=== PATIENT | female | born 1930 | race Caucasian/White ===

== ENCOUNTER 2017-06-27 23:42 | Inpatient (IN) | payer BC, MEDICARE ==
[~2017-06-27] VITALS: Ht 157.5 cm; Wt 55.9 kg
[~2017-06-27 23:42] MED LIST: ALBUTEROL0.63 MG/3 INH; BUDESONIDE0.5 MG/2 M NEB; FAMOTIDINE20 MG PO; GUAIFENESIN DM118 ML NG; LEVAQUIN750 MG PO; LEVOTHYROXINE50 MCG PO; LORATADINE10 MG PO; MEGESTROL ACETA40 MG PO; MIRTAZAPINE15 MG PO; MULTI-VITAMIN1 EACH PO; NADOLOL20 MG PO; PREDNISONE10 MG PO; SIMVASTATIN20 MG PO; TESSALON PERLE100 MG PO
[2017-06-28] MEDS ORDERED: AZITHROMYCIN250 MG PO (00:06)
--- NOTE | 2017-06-28 00:48 | Diagnostic Imaging Report ---
HIP RIGHT 2-3 VW (+/- PELVIS) Comparison: None Clinical history: Fall, bilateral hip pain Findings: Moderate bilateral hip degenerative changes. Mildly displaced right intertrochanteric femur fracture. Vascular calcifications. Impression: Mildly displaced right intertrochanteric femur fracture. Signed by: Dr Amarilis Jones MD on 06/28/2017 12:45 AM
--- NOTE | 2017-06-28 00:50 | Diagnostic Imaging Report ---
CHEST SINGLE (NOT PORTABLE), 06/27/2017 11:59 PM Technique: CHEST SINGLE (NOT PORTABLE) Comparison: 06/21/2017 Clinical history: Fall with bilateral hip pain, hip fracture Findings: Stable cardiomediastinal silhouette. Atherosclerotic calcifications. There is no consolidation or edema. No pleural effusion or pneumothorax. No acute bony abnormality seen. Impression: 1. Lines/Tubes: None 2. No acute abnormality. Signed by: Dr Amarilis Jones MD on 06/28/2017 12:46 AM
[2017-06-28 00:59] LABS: BASOPHILS # (AUTO) 0.1 (0.0-0.1); BASOPHILS % 0.4 % (0.0-1.0); EOSINOPHILS # (AUTO) 0.2 (0.0-0.4); EOSINOPHILS % 1.4 % (0.0-6.0); HEMATOCRIT 40.7 % (34.2-44.1); HEMOGLOBIN 13.7 g/dL (12.0-16.0); LYMPHOCYTES # (AUTO) 2.5 (1.0-3.2); LYMPHOCYTES % 17.8 % (18.0-39.1); MEAN CORPUSCULAR HEMOGLOBIN 30.8 pg (28-32); MEAN CORPUSCULAR HGB CONC 33.7 g/dL (31-35); MEAN CORPUSCULAR VOLUME 91.5 fL (81-99); MONOCYTES # (AUTO) 1.9 (0.2-0.8); MONOCYTES % 13.4 % (4.4-11.3); NEUTROPHILS # (AUTO) 8.8 (2.1-6.9); NEUTROPHILS % 62.8 % (38.7-80.0); PLATELET COUNT 258 x10e3/uL (140-360); RED BLOOD COUNT 4.45 x10e6/uL (3.6-5.1); RED CELL DISTRIBUTION WIDTH 14.6 % (11.7-14.4)
[2017-06-28 01:02] LABS: INR 0.95; PROTHROMBIN TIME 13.1 seconds (11.9-14.5)
[2017-06-28 01:03] LABS: PARTIAL THROMBOPLASTIN TIME 31.6 seconds (23.8-35.5)
[2017-06-28 01:11] LABS: ALANINE AMINOTRANSFERASE 17 IU/L (0-55); ALBUMIN 3.2 g/dL (3.5-5.0); ALBUMIN/GLOBULIN RATIO 1.1 (0.8-2.0); ALKALINE PHOSPHATASE 52 IU/L (40-150); ANION GAP 14.4 mmol/L (8-16); BLOOD UREA NITROGEN 20 mg/dL (7-26); BUN/CREATININE RATIO 23 (6-25); CALCIUM 9.2 mg/dL (8.4-10.2); CARBON DIOXIDE 24 mmol/L (22-29); CHLORIDE 105 mmol/L (98-107); CREATININE, SERUM 0.88 mg/dL (0.57-1.11); EST GLOMERULAR FILTRATION RATE > 60 ML/MIN (60-); GLUCOSE 131 mg/dL (74-118); POTASSIUM 4.4 mmol/L (3.5-5.1); SODIUM 139 mmol/L (136-145)
[2017-06-28] MEDS ORDERED: SOD CHL IV SCH (02:00)
[2017-06-28] MEDS ORDERED: DEXTROSE IV SCH (02:00)
[2017-06-28] MEDS ORDERED: POTASSIUM CHL IV SCH (02:00)
[2017-06-28] MEDS ORDERED: MORPHINE SULFATE 2 MG/ML SYR IV PRN (02:00)
[2017-06-28] MEDS ORDERED: ONDANSETRON HCL INJ 2 MG/ML VIAL IV PRN (02:00)
[2017-06-28 02:47] LABS: BILIRUBIN,URINE NEGATIVE (NEGATIVE); CLARITY,URINE CLEAR (CLEAR); COLOR,URINE YELLOW (YELLOW); KETONES,URINE NEGATIVE (NEGATIVE); LEUKOCYTE ESTERASE ,URINE NEGATIVE (NEGATIVE); NITRITE,URINE NEGATIVE (NEGATIVE); PROTEIN,URINE DIPSTICK NEGATIVE (NEGATIVE); URINE UROBILINOGEN 0.2 mg/dL (0.2 - 1)
[2017-06-28 02:58] LABS: BACTERIA,URINE RARE /HPF; EPITHELIAL CELLS,URINE RARE /LPF; RBC,URINE 0-5 /HPF (0-5); WBC,URINE (MAN) 0-5 /HPF (0-5)
[2017-06-28 02:59] LABS: MUCUS,URINE MODERATE (RARE)
[2017-06-28 03:00] VITALS: BP 139/65
[2017-06-28 03:07] VITALS: BP 139/65
[2017-06-28 04:00] VITALS: BP 140/64
[2017-06-28 04:07] LABS: BAND NEUTROPHILS % (MANUAL) 4 %; LYMPHOCYTES % (MANUAL) 22 % (19-48); METAMYELOCYTES % (MANUAL) 7 % (0-0); MONOCYTES % (MANUAL) 4 % (3.4-9.0); NEUTROPHILS % (MANUAL) 59 % (40-74); SMUDGE CELLS FEW
[2017-06-28] MEDS: D5.45%NS/KCL 20MEQ 1,000 ML IV SCH (06:45)
[2017-06-28 08:49] VITALS: BP 136/65
[2017-06-28] MEDS ORDERED: CEFAZOLIN SOD 2 GM in WATER STERILE 10ML VIAL 10 ML IV ONE ×2 (09:15→10:30)
[2017-06-28] MEDS ORDERED: SODIUM CHLORIDE 0.9% 250ML 250 ML IV ONE (09:15)
[2017-06-28] MEDS ORDERED: KETOROLAC TROMETHAMINE 30 MG/ML VIAL ONE (13:30)
[2017-06-28] MEDS ORDERED: ONDANSETRON HCL INJ 2 MG/ML VIAL ONE (13:30)
[2017-06-28] MEDS ORDERED: DEXAMETHASONE SOD PHOS INJ 4 MG/ML VIAL ONE (13:30)
[2017-06-28] MEDS ORDERED: PROPOFOL IV EMULSION 10 MG/ML 20 ML VIAL ONE (13:30)
[2017-06-28] MEDS ORDERED: ROCURONIUM BROMIDE 10 MG/ML 5ML VIAL ONE (13:30)
[2017-06-28] MEDS ORDERED: SEVOFLURANE INHAL SOLN 250 ML PEN BTL ONE (13:30)
[2017-06-28] MEDS ORDERED: LIDOCAINE HCL 2% LOCAL INJ 5 ML SDV VIAL INJ ONE (13:30)
[2017-06-28] MEDS ORDERED: FENTANYL CITRATE/PF 100MCG/2 ML INJ ONE (13:34)
[2017-06-28] MEDS ORDERED: HYDROCODONE/APAP 5MG-325MG TAB PO PRN (13:45)
[2017-06-28] MEDS ORDERED: CEFAZOLIN SOD 1 GM/NS 50ML 50 ML IV SCH (14:00)
--- NOTE | 2017-06-28 14:39 | History and Physical ---
CHIEF COMPLAINT: Fall with right hip pain. HISTORY OF PRESENT ILLNESS: This is an 86-year-old woman, a clinic patient, who was attempting to change her clothes at home when she placed both legs into the same pants hole. When she attempted to stand, she fell, resulting in right hip pain. Here she is found to have right hip fracture. She is admitted for further evaluation and management. PAST MEDICAL HISTORY: Bronchopneumonia, hyperglycemia with hemoglobin A1c 5.1, hyperbilirubinemia, hypothyroidism, physical deconditioning, anorexia, hypertension, depression, fall with rib fracture in August 2016. PAST SURGICAL HISTORY: Partial bowel resection in remote history. ALLERGIES: PER THE ELECTRONIC MEDICAL RECORDS. FAMILY HISTORY: None. SOCIAL HISTORY: Patient is . She has no children. Lives with her family, her sister and niece. No alcohol, illicit drugs or cigarettes. MEDICATIONS: Per the electronic medical records. Reviewed. REVIEW OF SYSTEMS: Denies any dizziness, chest pain. VITAL SIGNS: Reviewed. PHYSICAL EXAMINATION GENERAL APPEARANCE: A tired-appearing woman resting in bed. HEENT: Anicteric. CARDIOVASCULAR: Normal S1/S2. LUNGS: Bilateral breath sounds. ABDOMEN: Soft, nontender, nondistended. EXTREMITIES: She has right leg in traction. SKIN: Dry. PSYCHIATRIC: Normal affect. NEUROLOGICALLY: Alert and appropriately. LABS: Reviewed. ASSESSMENT AND PLAN: An 86-year-old woman. 1. Fall with right hip fracture. Surgery consulted. 2. Hyperglycemia. Hemoglobin A1c earlier this day was 5.1. She did not have diabetes. She also had hyperglycemia at that time. 3. Mild hyperbilirubinemia. This is likely Gilbert syndrome as she has had this mild hyperbilirubinemia in the past with negative findings on testing. 4. Physical deconditioning. Physical therapy. 5. Prophylaxis. Will use Pepcid and use Xarelto. 6. Disposition: (1) Patient has good functional status of more than 4 METs. (2) Surgical risk is intermediate. (3) Patient has no coronary artery disease, chronic kidney disease, diabetes or stroke ever. Patient may proceed to surgery without any further testing. She can be covered empirically with preoperative antibiotics in the setting of leukocytosis. This leukocytosis is likely secondary to marginalization of the white blood cells. The urinalysis was negative. Job#: [id number] EV
--- NOTE | 2017-06-28 15:14 | Diagnostic Imaging Report ---
PROCEDURE:HIP RIGHT 2-3 VW (+/- PELVIS) TECHNIQUE: INDICATION: COMPARISON:Patients [facility], , HIP RIGHT 2-3 VW (+/- PELVIS), 06/27/2017, 23:59. FINDINGS:Intramedullary rupal with a femoral neck screw affixes an intertrochanteric fracture. Position appears anatomic. CONCLUSION:Status post IM rupal and femoral neck screw placement. Hi Llanos D.O. Dictated by: Hi Llanos D.O. on 06/28/2017 at 15:22 Electronically approved by: Hi Llanos D.O. on 06/28/2017 at 15:22
--- NOTE | 2017-06-28 15:17 | Operative Report ---
DATE OF PROCEDURE: June 28, 2017 PREOPERATIVE DIAGNOSIS: Displaced right intertrochanteric hip fracture. POSTOPERATIVE DIAGNOSIS: Displaced right intertrochanteric hip fracture. OPERATION/PROCEDURE PERFORMED: Closed reduction of the right intertrochanteric hip fracture, Right short gamma nail fixation of the intertrochanteric hip fracture. DATA ENTRY SUPERVISOR: Gilda Jackman ANESTHESIA: General endotracheal intubation anesthesia. IV FLUIDS: Per the anesthesia record. BRIEF DESCRIPTION OF OPERATIVE PROCEDURE: Ms. Schaefer was taken to the operating room and placed in the supine position on the operating table. Following induction of general anesthesia, as well as endotracheal intubation, the patient's left lower was placed in a well-padded lithotomy position, and the right lower extremity was placed in well-padded longitudinal traction. Fluoroscopic evaluation of the hip joint demonstrated a displaced right intertrochanteric hip fracture. The leg was manipulated under anesthesia, and this resulted in acceptable realignment of her injury. The patient's thigh and flank were then prepped and draped in a standard surgical fashion. An incision was created roughly at the level of the greater trochanter. This incision was carried through the skin only. Blunt dissection was used to deepen the incision to the level of the tip of the trochanter. An awl was placed on the tip of the trochanter, and then advanced within the femur. The position of the awl was checked flouroscopically and to be appropriate. A guidewire was then inserted within the femoral canal, and position of the guidewire was again checked in both AP and lateral planes. The 1-step reamer was then used to create a channel for the implant. A short gamma nail was then inserted without difficulty. A 2nd incision was created somewhat more distally along the lateral aspect of the leg. The guide for the compression screw was then advanced against the lateral aspect of the femur. A guide pin was advanced from lateral to medial through the neck into the head of the femur. The position of the guide pin was checked using fluoroscopy and found to be appropriate. Measurements were taken and a reamer was used to create a channel for the implant. A compression screw was then inserted across the patient's fracture site and compression was placed across the fracture. The compression screw was then locked to prevent further rotation, but to allow further compression. The nail was then locked distally using a guide from the system. All wounds were then copiously irrigated. The wounds were closed in a multilayer fashion. Sterile dressings were applied. The patient was awakened and taken to the postanesthesia care unit in stable condition. Job#: [id number] ADAM ZHOU
[2017-06-28] MEDS: CEFAZOLIN SOD 1 GM VIAL IV SCH (17:50)
[2017-06-28 20:14] VITALS: BP 144/60
[2017-06-29] VITALS (8 sets, daily range): BP systolic 124–164; BP diastolic 59–70
[2017-06-29] MEDS: MORPHINE SULFATE 5 MG/ML VIAL IV PRN ×2 (00:05→21:24)
[2017-06-29] MEDS: CEFAZOLIN SOD 1 GM VIAL IV SCH ×2 (01:58→10:06)
[2017-06-29] MEDS: D5.45%NS/KCL 20MEQ 1,000 ML IV SCH ×3 (01:59→22:45)
[2017-06-29 07:11] LABS: BASOPHILS # (AUTO) 0.1 (0.0-0.1); BASOPHILS % 0.3 % (0.0-1.0); HEMOGLOBIN 10.8 g/dL (12.0-16.0); LYMPHOCYTES # (AUTO) 1.3 (1.0-3.2); LYMPHOCYTES % 6.8 % (18.0-39.1); MEAN CORPUSCULAR HGB CONC 33.8 g/dL (31-35); MONOCYTES # (AUTO) 2.1 (0.2-0.8); NEUTROPHILS # (AUTO) 15.1 (2.1-6.9); NEUTROPHILS % 79.8 % (38.7-80.0); PLATELET COUNT 224 x10e3/uL (140-360); RED BLOOD COUNT 3.48 x10e6/uL (3.6-5.1); RED CELL DISTRIBUTION WIDTH 14.5 % (11.7-14.4)
[2017-06-29 07:35] LABS: BLOOD UREA NITROGEN 14 mg/dL (7-26); BUN/CREATININE RATIO 20 (6-25); CALCIUM 8.2 mg/dL (8.4-10.2); CARBON DIOXIDE 24 mmol/L (22-29); CHLORIDE 108 mmol/L (98-107); CREATININE, SERUM 0.71 mg/dL (0.57-1.11); EST GLOMERULAR FILTRATION RATE > 60 ML/MIN (60-); GLUCOSE 172 mg/dL (74-118); SODIUM 139 mmol/L (136-145)
[2017-06-29] MEDS: RIVAROXABAN 10 MG TABLET PO SCH (17:02)
[2017-06-30 02:13] VITALS: BP 145/65
[2017-06-30] MEDS: MORPHINE SULFATE 5 MG/ML VIAL IV PRN (03:05)
[2017-06-30 05:53] VITALS: BP 134/73
[2017-06-30 07:01] LABS: HEMATOCRIT 31.6 % (34.2-44.1); HEMOGLOBIN 10.5 g/dL (12.0-16.0)
[2017-06-30] MEDS ORDERED: LEVOFLOXACIN 500MG/D5W 100ML 100 ML IV SCH (07:15)
[2017-06-30 07:31] LABS: BASOPHILS # (AUTO) 0.1 (0.0-0.1); BASOPHILS % 0.5 % (0.0-1.0); EOSINOPHILS # (AUTO) 0.2 (0.0-0.4); EOSINOPHILS % 0.7 % (0.0-6.0); LYMPHOCYTES # (AUTO) 4.8 (1.0-3.2); LYMPHOCYTES % 22.5 % (18.0-39.1); MEAN CORPUSCULAR HEMOGLOBIN 30.3 pg (28-32); MEAN CORPUSCULAR HGB CONC 33.1 g/dL (31-35); MEAN CORPUSCULAR VOLUME 91.4 fL (81-99); MONOCYTES # (AUTO) 2.8 (0.2-0.8); MONOCYTES % 13.1 % (4.4-11.3); NEUTROPHILS # (AUTO) 13.1 (2.1-6.9); NEUTROPHILS % 61.8 % (38.7-80.0); PLATELET COUNT 252 x10e3/uL (140-360); RED BLOOD COUNT 3.47 x10e6/uL (3.6-5.1); RED CELL DISTRIBUTION WIDTH 14.3 % (11.7-14.4)
[2017-06-30 07:40] LABS: ANION GAP 10.4 mmol/L (8-16); BLOOD UREA NITROGEN 13 mg/dL (7-26); BUN/CREATININE RATIO 18 (6-25); CALCIUM 8.4 mg/dL (8.4-10.2); CARBON DIOXIDE 25 mmol/L (22-29); CHLORIDE 106 mmol/L (98-107); CREATININE, SERUM 0.71 mg/dL (0.57-1.11); EST GLOMERULAR FILTRATION RATE > 60 ML/MIN (60-); GLUCOSE 113 mg/dL (74-118); POTASSIUM 4.4 mmol/L (3.5-5.1); SODIUM 137 mmol/L (136-145)
--- NOTE | 2017-06-30 07:48 | Progress Note ---
DATE: June 29, 2017 TIME: 7 a.m. OVERNIGHT: Status post surgical management. REVIEW OF SYSTEMS: Denies any dizziness or chest pain. PHYSICAL EXAMINATION VITAL SIGNS: Reviewed. GENERAL: A tired-appearing woman resting in bed. HEENT: Anicteric. CARDIOVASCULAR: Normal S1 and S2. LUNGS: Moderate breath sounds. ABDOMEN: Soft and nontender. EXTREMITIES: Right hip with dressing in place. SKIN: Dry. PSYCHIATRIC: Flat affect. NEUROLOGICAL: Alert. LABS: Reviewed. MEDICATIONS: Reviewed. ASSESSMENT AND PLAN: An 86-year-old woman with: 1. Fall with right hip fracture. 2. Hyperglycemia: Hemoglobin A1c is 5.1. 3. Mild hyperbilirubinemia. 4. Physical deconditioning. 5. Right hip pain. 6. Prophylaxis: Pepcid and Xarelto. 7. Disposition: Continue current care and physical therapy. SNF evaluation as family is interested. Job#: [id number] CT
--- NOTE | 2017-06-30 07:54 | Progress Note ---
DATE: June 30, 2017 TIME: 7:10 a.m. OVERNIGHT: Patient confused. REVIEW OF SYSTEMS: Unreliable. PHYSICAL EXAMINATION VITAL SIGNS: Reviewed. GENERAL: A tired-appearing woman resting in bed. HEENT: Anicteric. CARDIOVASCULAR: Normal S1 and S2. LUNGS: Moderate breath sounds. ABDOMEN: Soft, nontender and nondistended. EXTREMITIES: Right hip with dressing in place clean and dry. SKIN: Dry. PSYCHIATRIC: Flat affect. LABS: Reviewed. MEDICATIONS: Reviewed. ASSESSMENT AND PLAN: This is an 86-year-old woman with: 1. Fall/right hip fracture: Status post surgical repair. Continue physical therapy. Family is not interested in SNF. 2. Right hip pain: P.r.n. pain medications. 3. Worsening leukocytosis: Will obtain labs this morning. Will obtain a repeat urinalysis and chest x-ray. Use empiric antibiotics. 4. Normocytic anemia: Will follow. 5. Acute psychosis/acute delirium: Following surgery. Will discontinue narcotics and use only Tylenol p.r.n. May need to use tramadol if needed. 6. Moderate hyperbilirubinemia. 7. Physical deconditioning: Physical therapy. 8. Prophylaxis: Continue Xarelto. Will add Pepcid. 9. Disposition: Monitor closely. Obtain labs this morning. Job#: [id number] ADAM
--- NOTE | 2017-06-30 07:55 | Diagnostic Imaging Report ---
PROCEDURE:CHEST SINGLE (PORTABLE) TECHNIQUE:Portable AP chest INDICATION:Status post intramedullary rupal right hip. COMPARISON:None. FINDINGS: Trace left lower lobe airspace opacity with adjacent pleural effusion and minimal left hemidiaphragm elevation. Right lung is clear. Upper limits of normal heart size for technique, with prominent central vascular peribronchial cuffing. Intact skeleton. CONCLUSION: Mild central vascular congestion without pulmonary edema. Left lower lobe subsegmental atelectasis (less likely aspiration or developing pneumonia). Dictated by: Alvin Ocampo M.D. on 06/30/2017 at 8:02 Electronically approved by: Alvin Ocampo M.D. on 06/30/2017 at 8:02
[2017-06-30] MEDS: FAMOTIDINE 20 MG TAB PO SCH ×2 (07:59→17:28)
[2017-06-30] MEDS: ACETAMINOPHEN 325 MG TAB PO PRN ×2 (07:59→17:28)
[2017-06-30 08:03] VITALS: BP 142/64
[2017-06-30 11:56] VITALS: BP 116/59
[2017-06-30] MEDS: D5.45%NS/KCL 20MEQ 1,000 ML IV SCH (12:05)
[2017-06-30 15:43] VITALS: BP 151/65
[2017-06-30] MEDS: RIVAROXABAN 10 MG TABLET PO SCH (17:28)
[2017-06-30 18:45] LABS: BILIRUBIN,URINE NEGATIVE (NEGATIVE); KETONES,URINE NEGATIVE (NEGATIVE); LEUKOCYTE ESTERASE ,URINE NEGATIVE (NEGATIVE); NITRITE,URINE NEGATIVE (NEGATIVE); PROTEIN,URINE DIPSTICK NEGATIVE (NEGATIVE); URINE UROBILINOGEN 0.2 mg/dL (0.2 - 1)
[2017-06-30] MEDS: LEVOFLOXACIN 500MG/D5W 100ML 100 ML IV SCH (18:45)
[2017-06-30 18:47] LABS: CLARITY,URINE SL CLOUDY (CLEAR); COLOR,URINE YELLOW (YELLOW)
[2017-06-30 18:58] LABS: EPITHELIAL CELLS,URINE RARE /LPF
[2017-06-30 20:00] VITALS: BP 133/68
[2017-06-30] MEDS: ONDANSETRON HCL INJ 2 MG/ML VIAL IV PRN (21:21)
[2017-07-01] VITALS: BP 143/67
[2017-07-01] MEDS: D5.45%NS/KCL 20MEQ 1,000 ML IV SCH (00:46)
[2017-07-01 04:00] VITALS: BP 158/77
[2017-07-01] MEDS: ONDANSETRON HCL INJ 2 MG/ML VIAL IV PRN ×2 (04:18→10:25)
[2017-07-01 06:56] LABS: BASOPHILS # (AUTO) 0.1 (0.0-0.1); BASOPHILS % 0.3 % (0.0-1.0); EOSINOPHILS % 0.1 % (0.0-6.0); HEMATOCRIT 32.9 % (34.2-44.1); LYMPHOCYTES # (AUTO) 1.8 (1.0-3.2); LYMPHOCYTES % 7.8 % (18.0-39.1); MEAN CORPUSCULAR HEMOGLOBIN 30.4 pg (28-32); MEAN CORPUSCULAR HGB CONC 33.4 g/dL (31-35); MEAN CORPUSCULAR VOLUME 90.9 fL (81-99); MONOCYTES % 8.5 % (4.4-11.3); NEUTROPHILS # (AUTO) 18.9 (2.1-6.9); NEUTROPHILS % 81.2 % (38.7-80.0); PLATELET COUNT 296 x10e3/uL (140-360); RED BLOOD COUNT 3.62 x10e6/uL (3.6-5.1); RED CELL DISTRIBUTION WIDTH 14.2 % (11.7-14.4)
--- NOTE | 2017-07-01 07:22 | Diagnostic Imaging Report ---
PROCEDURE:ABDOMEN-1VIEW (KUB) TECHNIQUE:Supine AP abdomen INDICATION:Abdominal distention status post right hip surgery. COMPARISON:None. FINDINGS: Diffuse gaseous distention of small bowel, with grossly decompressed large bowel. No evidence of organomegaly or ascites. Extensive arteriosclerosis of the splenic artery. Grossly intact skeleton. Right antegrade femoral rupal with femoral neck screw. CONCLUSION: Diffuse gaseous distention of the small bowel suggesting postoperative ileus. Dictated by: Alvin Ocamop M.D. on 07/01/2017 at 7:30 Electronically approved by: Alvin Ocampo M.D. on 07/01/2017 at 7:30
[2017-07-01] MEDS: FAMOTIDINE 20 MG TAB PO SCH ×2 (07:30→17:19)
[2017-07-01 07:32] LABS: ANION GAP 10.7 mmol/L (8-16); BLOOD UREA NITROGEN 13 mg/dL (7-26); BUN/CREATININE RATIO 19 (6-25); CALCIUM 8.6 mg/dL (8.4-10.2); CARBON DIOXIDE 24 mmol/L (22-29); CHLORIDE 105 mmol/L (98-107); CREATININE, SERUM 0.68 mg/dL (0.57-1.11); EST GLOMERULAR FILTRATION RATE > 60 ML/MIN (60-); GLUCOSE 172 mg/dL (74-118); POTASSIUM 4.7 mmol/L (3.5-5.1); SODIUM 135 mmol/L (136-145)
[2017-07-01] MEDS ORDERED: DEXTROSE 5%/0.9% SOD CHL 1,000 ML IV SCH (07:45)
[2017-07-01 08:02] VITALS: BP 129/78
[2017-07-01 08:34] LABS: BAND NEUTROPHILS % (MANUAL) 1 %; LYMPHOCYTES % (MANUAL) 7 % (19-48); MONOCYTES % (MANUAL) 10 % (3.4-9.0); MYELOCYTES % (MANUAL) 1 % (0-0); NEUTROPHILS % (MANUAL) 80 % (40-74)
[2017-07-01 08:35] LABS: PLATELET ESTIMATE ADEQUATE; PLATELET MORPHOLOGY COMMENT NORMAL; RBC MORPHOLOGY COMMENT NORMAL
[2017-07-01 08:36] LABS: ANISOCYTOSIS SLIGHT
--- NOTE | 2017-07-01 09:32 | Progress Note ---
DATE: July 01, 2017 TIME: 6:20 a.m. OVERNIGHT: She had abdominal discomfort with some vomiting. REVIEW OF SYSTEMS: Denies any pain. PHYSICAL EXAMINATION: VITAL SIGNS: Have been reviewed. GENERAL APPEARANCE: Tired-appearing woman resting in bed. HEENT: Anicteric. Pupils respond to light. No oral lesions. CARDIOVASCULAR: Normal S1 and S2. LUNGS: Moderate breath sounds. ABDOMEN: Soft. Mildly distended, mildly full. EXTREMITIES: No edema. She has right hip dressing in place, clean and dry. SKIN: Dry. PSYCHIATRIC: Flat affect. LABS: Reviewed. MEDICATIONS: Reviewed. ASSESSMENT: An 86-year-old woman: 1. Fall/right hip fracture. 2. Right hip pain. 3. Worsening leukocytosis. 4. Normocytic anemia. 5. Acute psychosis/acute delirium. 6. Moderate hyperbilirubinemia. 7. Physical deconditioning. 8. Abdominal distention. PLAN: 1. Obtain KUB. 2. Obtain labs. 3. Continue physical therapy. Patient had minimal therapy yesterday while sitting on the bed with therapist. 4. Family not interested in SNF, but this may be necessary. Will follow up labs this morning and see how patient does with physical therapy today. 5. Provide incentive spirometry to reduce atelectasis. Job#: [id number]
[2017-07-01] MEDS ORDERED: METOPROLOL TARTRATE 25 MG TAB PO SCH ×3 (10:15→21:00)
[2017-07-01] MEDS: METOPROLOL TARTRATE INJ 1 MG/ML VIAL IV PRN (10:25)
[2017-07-01 12:01] VITALS: BP 133/70
[2017-07-01 16:14] VITALS: BP 177/77
[2017-07-01] MEDS ORDERED: DIGOXIN INJ 0.25 MG/ML 2 ML AMP IV ONE (16:15)
[2017-07-01] MEDS ORDERED: PROMETHAZINE 12.5MG/ NACL 0.9% 12.5 MG/50 ML BAG IV PRN (16:15)
[2017-07-01] MEDS: HYDROMORPHONE 1MG/1ML INJ IV SCH (17:00)
[2017-07-01] MEDS ORDERED: AMIODARONE HCL 200 MG TAB PO SCH (17:00)
[2017-07-01] MEDS: RIVAROXABAN 10 MG TABLET PO SCH (17:19)
[2017-07-01] MEDS: AMIODARONE HCL 200 MG TAB PO SCH (17:19)
[2017-07-01 17:59] LABS: ALANINE AMINOTRANSFERASE 11 IU/L (0-55); ALBUMIN 2.5 g/dL (3.5-5.0); ALBUMIN/GLOBULIN RATIO 0.8 (0.8-2.0); ALKALINE PHOSPHATASE 60 IU/L (40-150); ANION GAP 10.4 mmol/L (8-16); BLOOD UREA NITROGEN 12 mg/dL (7-26); BUN/CREATININE RATIO 17 (6-25); CALCIUM 8.6 mg/dL (8.4-10.2); CARBON DIOXIDE 25 mmol/L (22-29); CHLORIDE 104 mmol/L (98-107); CREATININE, SERUM 0.72 mg/dL (0.57-1.11); EST GLOMERULAR FILTRATION RATE > 60 ML/MIN (60-); GLUCOSE 150 mg/dL (74-118); POTASSIUM 4.4 mmol/L (3.5-5.1); SODIUM 135 mmol/L (136-145)
[2017-07-01] MEDS: LEVOFLOXACIN 500MG/D5W 100ML 100 ML IV SCH (18:13)
[2017-07-01] MEDS ORDERED: SODIUM CHLORIDE 0.9% 1000ML 1,000 ML ONE (19:04)
[2017-07-01] MEDS ORDERED: SODIUM CHLORIDE 0.9% 1000ML 1,000 ML IV ONE (19:15)
[2017-07-01 19:18] LABS: MAGNESIUM 1.8 MG/DL (1.3-2.1); PHOSPHORUS 1.8 MG/DL (2.3-4.7)
[2017-07-01] MEDS: DEXTROSE 5%/0.45% SOD CHL 1,000 ML IV SCH (19:58)
[2017-07-01 20:00] VITALS: BP 141/76
[2017-07-01] MEDS ORDERED: POTASSIUM PHOSPHATE 10 MM in SODIUM CHLORIDE 0.9% 250ML 250 ML IV ONE (21:00)
[2017-07-01] MEDS ORDERED: DIGOXIN INJ 0.25 MG/ML 2 ML AMP IV NR (22:00)
[2017-07-02] VITALS (7 sets, daily range): BP systolic 135–174; BP diastolic 63–89
[2017-07-02] MEDS: METOPROLOL TARTRATE INJ 1 MG/ML VIAL IV PRN (00:15)
[2017-07-02] MEDS: HYDROMORPHONE 1MG/1ML INJ IV SCH ×3 (01:00→17:00)
[2017-07-02 06:56] LABS: BASOPHILS # (AUTO) 0.1 (0.0-0.1); BASOPHILS % 0.4 % (0.0-1.0); EOSINOPHILS % 0.1 % (0.0-6.0); HEMATOCRIT 29.6 % (34.2-44.1); HEMOGLOBIN 10.1 g/dL (12.0-16.0); LYMPHOCYTES # (AUTO) 1.4 (1.0-3.2); LYMPHOCYTES % 6.1 % (18.0-39.1); MEAN CORPUSCULAR HEMOGLOBIN 30.7 pg (28-32); MEAN CORPUSCULAR HGB CONC 34.1 g/dL (31-35); MONOCYTES # (AUTO) 1.8 (0.2-0.8); NEUTROPHILS # (AUTO) 18.8 (2.1-6.9); NEUTROPHILS % 82.6 % (38.7-80.0); PLATELET COUNT 324 x10e3/uL (140-360); RED BLOOD COUNT 3.29 x10e6/uL (3.6-5.1); RED CELL DISTRIBUTION WIDTH 14.3 % (11.7-14.4)
--- NOTE | 2017-07-02 07:17 | Progress Note ---
DATE: July 02, 2017 TIME: 7 a.m. OVERNIGHT: Patient refusing to ambulate, but less confused. Overnight, she had a rapid heart with atrial fibrillation. REVIEW OF SYSTEMS: Denies any dizziness. PHYSICAL EXAMINATION VITAL SIGNS: Reviewed. GENERAL: A tired-appearing woman resting in bed. HEENT: Anicteric. CARDIOVASCULAR: Normal S1 and S2. Irregular heart rate. LUNGS: Moderate breath sounds. ABDOMEN: Soft, nontender and nondistended. EXTREMITIES: She has a right hip with dressing in place. SKIN: Dry. PSYCHIATRIC: Flat affect. LABS: Reviewed. MEDICATIONS: Reviewed. ASSESSMENT: An 86-year-old woman with: 1. New-onset of atrial fibrillation with rapid ventricular response. 2. Fall/right hip fracture: Status post repair. 3. Right hip pain. 4. Normocytic anemia. 5. Acute psychosis/acute delirium. 6. Moderate hyperbilirubinemia. 7. Physical deconditioning. 8. Abdominal distention/postoperative ileus. PLAN 1. Ambulate the patient. 2. Clear liquid diet. 3. Rate control. Titrate beta sheyla. Continue amiodarone and digoxin. 4. Follow up labs this morning. Leukocytosis worsened yesterday. 5. Replace electrolytes. 6. Follow up repeat LFTs. 7. All cultures remain negative. 8. Continue Xarelto. 9. Ambulate the patient with physical therapy this morning. Job#: [id number] ADAM
[2017-07-02 07:18] LABS: ALANINE AMINOTRANSFERASE 12 IU/L (0-55); ALBUMIN 2.2 g/dL (3.5-5.0); ALBUMIN/GLOBULIN RATIO 0.7 (0.8-2.0); ALKALINE PHOSPHATASE 53 IU/L (40-150); ANION GAP 10.4 mmol/L (8-16); BLOOD UREA NITROGEN 12 mg/dL (7-26); BUN/CREATININE RATIO 19 (6-25); CARBON DIOXIDE 21 mmol/L (22-29); CHLORIDE 107 mmol/L (98-107); CREATININE, SERUM 0.62 mg/dL (0.57-1.11); EST GLOMERULAR FILTRATION RATE > 60 ML/MIN (60-); GLUCOSE 157 mg/dL (74-118); POTASSIUM 4.4 mmol/L (3.5-5.1); SODIUM 134 mmol/L (136-145)
[2017-07-02] MEDS: FAMOTIDINE 20 MG TAB PO SCH ×2 (08:50→18:23)
[2017-07-02] MEDS: AMIODARONE HCL 200 MG TAB PO SCH ×2 (08:50→20:18)
[2017-07-02] MEDS: METOPROLOL TARTRATE 50 MG TAB PO SCH ×2 (08:50→20:19)
[2017-07-02] MEDS ORDERED: METOPROLOL TARTRATE 25 MG TAB PO SCH (09:00)
[2017-07-02 10:41] LABS: BAND NEUTROPHILS % (MANUAL) 1 %; LYMPHOCYTES % (MANUAL) 11 % (19-48); MONOCYTES % (MANUAL) 2 % (3.4-9.0); NEUTROPHILS % (MANUAL) 86 % (40-74)
[2017-07-02 10:42] LABS: ANISOCYTOSIS MODERATE; HYPOCHROMASIA SLIGHT; PLATELET ESTIMATE ADEQUATE; PLATELET MORPHOLOGY COMMENT NORMAL; RBC MORPHOLOGY COMMENT NORMAL
[2017-07-02] MEDS: DEXTROSE 5%/0.45% SOD CHL 1,000 ML IV SCH (12:00)
--- NOTE | 2017-07-02 15:24 | Consultation ---
DATE OF CONSULTATION: July 02, 2017 CARDIOLOGY CONSULTATION REASON FOR CONSULTATION: Atrial fibrillation. HISTORY OF PRESENT ILLNESS: Ms. Scahefer, of note, is demented and confused and is unable to corroborate any history with me. Ms. Schaefer is an 86-year-old lady with a past medical history of hypothyroidism, dementia, physical deconditioning, anorexia, depression, a prior history of fall with a rib fracture in August 2016, who presented to this institution after a fall while attempting to change her clothes. When she attempted to stand, she fell and subsequently suffered a right hip fracture. She underwent a closed reduction with a Gamma nail fixation of the intertrochanteric fracture on June 28, 2017, and clinical course has been complicated by the fact that she has had postoperative ileus and increasing abdominal distention and pain. In terms of her vitals, patient went into atrial fibrillation with rapid ventricular response yesterday and, of note, she has been having increasing white blood cell count and again the ileus. Upon my visit today with the patient, patient seems to be resting comfortably but is very confused and is unable to corroborate any history. She denies any chest pain or shortness of breath. However, she is not very reliable. PAST MEDICAL HISTORY 1. Prior history of fall with fracture. 2. Hypertension. 3. Hypothyroidism. 4. Severe physical deconditioning and anorexia. 5. Prior history of bronchopneumonia. PAST SURGICAL HISTORY: History of partial bowel resection surgery in the remote past. FAMILY HISTORY: Unable to obtained secondary to her mental condition. SOCIAL HISTORY: According to the chart, she is . No children. Does have a niece. No alcohol or illicit drug use. ALLERGIES: NO KNOWN DRUG ALLERGIES. CURRENT MEDICATIONS: Include 1. Metoprolol 150 mg b.i.d. 2. Amiodarone 400 mg b.i.d. 3. Pepcid 20 mg b.i.d. 4. Levaquin q.24 h. 5. Xarelto 10 mg daily. 6. Zofran p.r.n. 7. Dilaudid p.r.n. 8. Benadryl p.r.n. REVIEW OF SYSTEMS: Unable to be obtained secondary to confused mental condition. PHYSICAL EXAMINATION VITAL SIGNS: Height of 62 inches, weight of 123 pounds. BMI is 22.5. Temperature of 97.6, pulse currently is 82, respiratory rate of 22, blood pressure 145/82, O2 sat 98% on 2 liters nasal cannula. IN GENERAL: This is a confused lady who is lying in bed and does not appear to be in distress. HEENT: Normocephalic, atraumatic. Pupils equally round and reactive to light. Extraocular movements are intact. Oropharynx is clear. NECK: No elevation of jugular venous pulsation, no carotid bruits. CARDIOVASCULAR: Irregularly irregular rate and rhythm. Normal S1 and S2. Soft 2/6 systolic ejection murmur at the right upper sternal border. LUNGS: Show decreased bibasilar breath sounds with some trace crackles. ABDOMEN: Distended, protuberant, with very hypoactive bowel sounds, but there is no rebound or guarding. BACK: No costovertebral angle tenderness. EXTREMITIES: Warm. There is noteworthy right thigh, lateral thigh edema. The surgical site is dressed and appears dry and intact. There is no lower extremity swelling. NEUROLOGIC: She is confused. She seems to move all 4 extremities and appears nonfocal. LABS: White count 22.8, hemoglobin 10.1, hematocrit 29.6, platelets of 324. Sodium 134, potassium 4.4, chloride 107, bicarb 21, BUN 12, creatinine 0.62, glucose of 157, calcium 8.0. AST 25, ALT 12, total bilirubin 1.8, total protein 5.2, albumin of 2.2. INR was 0.95. UA shows no white cells. Blood cultures from June 30 show no growth. Urine culture from June 28 shows no growth. Again urine culture on June 30 shows no growth. KUB from July 01, 2017, shows diffuse gaseous distention of the small bowel suggesting postoperative ileus. EKG reviewed, revealing atrial fibrillation with rapid ventricular response and nonspecific ST-T wave changes. DIAGNOSES 1. Atrial fibrillation with rapid ventricular response: This is a postoperative lady who currently exhibits signs of sepsis, very elevated white count in the setting of ileus. In a very elderly lady, this is not entirely surprising. 2. Status post fall with right hip fracture and status post surgical repair and fixation. 3. Hypertension, essential. 4. Dementia with questionable superimposed delirium. 5. Leukocytosis/sepsis: Unclear source. PLAN/RECOMMENDATIONS 1. Patient is on Xarelto for DVT prophylaxis and, since has stable renal function, I am okay with that and this will also help serve protection for thromboembolic prophylaxis. 2. We have started her on amiodarone b.i.d. with the hopes that this will help her resume back to normal sinus rhythm. 3. The patient recently received enema and has had 2 bowel movements according to the nursing staff today, hopefully with the resolution of her abdominal distention and ileus, and this may help decrease any stressors on the body. 4. This patient is receiving currently Levaquin for antibiotic, which has reasonably good coverage and is covering GI and pulmonary sources which may exacerbate the atrial arrhythmias. 5. Will continue telemetry monitoring. 6. Continue beta sheyla therapy with hold parameters. 7. Will continue to follow this patient with you. Thank you for this referral. Job#: [id number] EV
[2017-07-02] MEDS: RIVAROXABAN 10 MG TABLET PO SCH (18:24)
[2017-07-02] MEDS: LEVOFLOXACIN 500MG/D5W 100ML 100 ML IV SCH (18:30)
[2017-07-02] MEDS: SIMETHICONE 80 MG CHEW PO PRN (22:45)
[2017-07-03] VITALS: BP 163/78
[2017-07-03] MEDS: HYDROMORPHONE 1MG/1ML INJ IV SCH (00:55)
[2017-07-03] MEDS: DEXTROSE 5%/0.45% SOD CHL 1,000 ML IV SCH ×2 (00:55→21:32)
[2017-07-03 04:00] VITALS: BP 143/74
[2017-07-03 08:29] VITALS: BP 183/76
[2017-07-03] MEDS: AMIODARONE HCL 200 MG TAB PO SCH ×2 (09:40→21:00)
[2017-07-03] MEDS: METOPROLOL TARTRATE 50 MG TAB PO SCH ×3 (09:40→18:00)
[2017-07-03] MEDS: FAMOTIDINE 20 MG TAB PO SCH ×2 (09:40→16:30)
[2017-07-03 10:07] LABS: BASOPHILS # (AUTO) 0.2 (0.0-0.1); BASOPHILS % 0.5 % (0.0-1.0); EOSINOPHILS % 0.1 % (0.0-6.0); HEMATOCRIT 32.2 % (34.2-44.1); HEMOGLOBIN 11.1 g/dL (12.0-16.0); LYMPHOCYTES # (AUTO) 1.5 (1.0-3.2); LYMPHOCYTES % 4.6 % (18.0-39.1); MEAN CORPUSCULAR HEMOGLOBIN 30.6 pg (28-32); MEAN CORPUSCULAR HGB CONC 34.5 g/dL (31-35); MEAN CORPUSCULAR VOLUME 88.7 fL (81-99); MONOCYTES # (AUTO) 2.5 (0.2-0.8); MONOCYTES % 7.7 % (4.4-11.3); NEUTROPHILS % 84.3 % (38.7-80.0); PLATELET COUNT 425 x10e3/uL (140-360); RED BLOOD COUNT 3.63 x10e6/uL (3.6-5.1); RED CELL DISTRIBUTION WIDTH 14.1 % (11.7-14.4)
--- NOTE | 2017-07-03 10:12 | Diagnostic Imaging Report ---
EXAM: ABDOMEN-1VIEW (KUB) DATE: 07/03/2017 6:55 AM INDICATION: Distention COMPARISON: 07/01/2017 radiograph FINDINGS: Dilated gas-filled loops of bowel are present. Vascular calcifications in the left upper quadrant likely represent splenic artery calcifications. Evaluation for pneumoperitoneum limited given portable technique. Post surgical changes right hip stable. IMPRESSION: Gas-filled dilated loops of bowel, more conspicuous left upper quadrant. CT could be obtained for further evaluation. Signed by: Dr. Solis Sandoval MD on 07/03/2017 10:08 AM
[2017-07-03 10:32] LABS: ALANINE AMINOTRANSFERASE 16 IU/L (0-55); ALBUMIN 2.3 g/dL (3.5-5.0); ALBUMIN/GLOBULIN RATIO 0.8 (0.8-2.0); ALKALINE PHOSPHATASE 51 IU/L (40-150); ANION GAP 11.4 mmol/L (8-16); BLOOD UREA NITROGEN 18 mg/dL (7-26); BUN/CREATININE RATIO 32 (6-25); CALCIUM 8.1 mg/dL (8.4-10.2); CARBON DIOXIDE 22 mmol/L (22-29); CHLORIDE 99 mmol/L (98-107); CREATININE, SERUM 0.56 mg/dL (0.57-1.11); EST GLOMERULAR FILTRATION RATE > 60 ML/MIN (60-); GLUCOSE 142 mg/dL (74-118); POTASSIUM 4.4 mmol/L (3.5-5.1); SODIUM 128 mmol/L (136-145)
[2017-07-03] MEDS: SIMETHICONE 80 MG CHEW PO PRN (10:42)
[2017-07-03 10:43] LABS: LYMPHOCYTES % (MANUAL) 7 % (19-48); MONOCYTES % (MANUAL) 17 % (3.4-9.0); NEUTROPHILS % (MANUAL) 74 % (40-74); PLATELET ESTIMATE ADEQUATE; PLATELET MORPHOLOGY COMMENT NORMAL; RBC MORPHOLOGY COMMENT NORMAL
[2017-07-03] MEDS ORDERED: VANCOMYCIN 250MG/5ML ORAL SOLN PO SCH (12:00)
[2017-07-03] MEDS ORDERED: DIATRIZOATE MEGL/DIATRIZOA SOD 30 ML BTL PO ONE (12:36)
[2017-07-03] MEDS: CEFEPIME HCL 1 GM VIAL IV SCH ×2 (13:00→21:31)
[2017-07-03] MEDS: METRONIDAZOLE 500MG/NS 100ML 100 ML IV SCH ×2 (13:00→17:50)
[2017-07-03] MEDS: ACETAMINOPHEN 325 MG TAB PO SCH ×2 (13:06→21:31)
[2017-07-03 14:15] VITALS: BP 162/77
--- NOTE | 2017-07-03 14:18 | Consultation ---
DATE OF CONSULTATION: July 03, 2017 INFECTIOUS DISEASE CONSULTATION ATTENDING PHYSICIAN: Dr. Dawit Reeves. REASON FOR CONSULTATION: Elevated WBC. Thank you, Dr. Reeves, for asking me to see this patient. HISTORY: The patient is an 86-year-old woman referred for elevated WBC. She was admitted through the emergency department on June 28, 2017, with right hip intertrochanteric fracture after a fall. The patient fell at home while changing her underwear. She was taking an oral antibiotic and prednisone for chest congestion prior. The patient had been evaluated by the orthopedic service and successfully underwent closed reduction of a right hip fracture. However, the patient has developed worsening leukocytosis since surgery (range 18,890 to 33,170). The WBC in the emergency room was 18,850. The patient vomited 2 days ago and complains of progressive abdominal pain and has refused to eat. She has loose bowel movement (usual habit according to the family). There is no fever. PAST MEDICAL HISTORY: Hypertension, hypothyroidism, depression, early Alzheimer's dementia. PAST SURGICAL HISTORY: Rib fracture following a fall and partial bowel resection. ALLERGIES: NO KNOWN DRUG ALLERGIES. MEDICATION: The current antibiotics are Levaquin 500 mg IV piggyback q.24 h. and metronidazole 500 mg IV piggyback q.6 h. IMMUNIZATION: She received influenza vaccine in May 2017. She has not received pneumococcal vaccination. FAMILY HISTORY: Noncontributory. SOCIAL HISTORY: No alcohol or tobacco use. REVIEW OF SYSTEMS: As per history of present illness. PHYSICAL EXAMINATION GENERAL: Acutely ill. VITAL SIGNS: T-max 98, pulse 90, respiratory rate 20, blood pressure 183/76. Weight 123 pounds. HEENT: Normocephalic. There is no icterus or injection of conjunctivae. There is no ear or nasal discharge. Moist oral mucosa. No pharyngeal erythema or exudate. NECK: Supple. No lymphadenopathy. LUNGS: Decreased breath sounds due to shallow breathing. HEART: Normal S1 and S2. Regular. ABDOMEN: Distended, firm to palpation, and diffuse tenderness. EXTREMITIES: There is edema of the right thigh incision with small serosanguineous discharge. There is no erythema surrounding the incisions. SKIN: No acute erythema. Old ecchymosis. DOWNSTREAM BIOMANUFACTURING TECHNICIAN: Awake and alert. LABORATORY: WBC 33,170, hemoglobin 11.1, platelet 425,000. Neutrophil 74, lymph 7, mono 17. BUN 18, creatinine 0.56. Urinalysis is negative for pyuria. Urine culture showed no growth. Blood culture no growth. Abdominal x-ray showed dilated gas-filled loops of bowel. June 30, 2017 chest x-ray showed mild central venous congestion without pulmonary edema and left lower lobe subsegmental atelectasis. IMPRESSION 1. Sepsis. The sources may include Clostridium difficile colitis and acute abdomen. 2. Hypertension. 3. Hypothyroidism. 4. Elevated bilirubin. May be related to breakdown of extravasated blood at the right hip fracture site and/or sepsis. PLAN 1. Check abdominopelvic CT scan. 2. Discontinue Levaquin and start vancomycin 250 mg p.o. q.6 h. if there is no perforation on abdominal imaging. Also start cefepime 1 g IV piggyback q.8 h. Job#: [id number] EV
--- NOTE | 2017-07-03 14:48 | Diagnostic Imaging Report ---
EXAM: CT Abdomen and Pelvis WITH contrast INDICATION: Sepsis, pain, distention COMPARISON: Same day radiographs TECHNIQUE: Abdomen and Pelvis was scanned utilizing a multidetector helical scanner after administration of IV contrast. Coronal and sagittal reformations were obtained. IV CONTRAST: 100 mL Isovue-370 COMPLICATIONS: None RADIATION DOSE: Total DLP:546 mGy*cm Estimated effective dose: (DLP x 0.015 x size factor) mSv CTDIvol has been reviewed. It is below the limits set by the Radiation Protocol Committee (RPC). FINDINGS: Abdomen: Lung Bases: Small bilateral pleural effusions. Enhancing consolidation left lung base partially visualized suggesting atelectasis. Solid Organs: Liver, adrenals, kidneys, spleen, and pancreas grossly unremarkable. Upper GI Tract: Small hiatal hernia. Fluid present distal esophagus suggesting dysmotility or reflux. Gastric distention. Diffuse fluid-filled small bowel dilated up to 33 and 41 mm in the left upper quadrant. Vascularity: Advanced aortic and mesenteric atherosclerotic changes. There is apparent common origin of the celiac trunk and SMA with advanced mesenteric atherosclerotic changes. Degree of calcification limits evaluation. Lymph Nodes: No suspicious adenopathy. Other: No distinct pneumatosis or portal venous gas. No free air or free fluid. Pelvis: Bladder: Decompressed with Ramírez catheter. Other: Postsurgical changes right hip with moderate surrounding gas and inflammatory stranding consistent with recent surgery. Uterus not visualized. Colon: Colon is not well evaluated presumably decompressed. Bones: Degenerative changes spine with minimal degenerative anterolisthesis L4 and L5. Inferior endplate minimal deformity L2. IMPRESSION: 1. Dilated fluid-filled loops of small bowel suggesting ileus or partial small bowel obstruction. Colon is poorly evaluated, presumed decompressed. 2. Surgical changes right hip. 3. Advanced vascular calcifications with mesenteric vessels poorly evaluated due to degree of atherosclerotic change. A component of ischemia would be difficult to exclude on current study. 4. Small bilateral pleural effusions. Enhancing areas of consolidation in the lung bases, partially visualized, statistically represent atelectasis. Signed by: Dr. Solis Sandoval MD on 07/03/2017 2:44 PM
[2017-07-03] MEDS ORDERED: IOPAMIDOL 370 MG/ML 200 ML INFUS..BTL INJ ONE (16:01)
[2017-07-03] MEDS ORDERED: SODIUM CHLORIDE 0.9% 50ML 50 ML ONE (16:01)
[2017-07-03] MEDS: SODIUM CHLORIDE 0.9% 250ML IRRIG IR SCH ×2 (16:30→21:31)
[2017-07-03] MEDS: RIVAROXABAN 10 MG TABLET PO SCH (17:00)
[2017-07-03 17:45] VITALS: BP 142/68
[2017-07-03 20:00] VITALS: BP 121/61
[2017-07-04] VITALS: BP 127/52
[2017-07-04] MEDS: DEXTROSE 5%/0.45% SOD CHL 1,000 ML IV SCH ×2 (00:04→22:00)
[2017-07-04] MEDS: SODIUM CHLORIDE 0.9% 250ML IRRIG IR SCH ×7 (00:04→23:28)
[2017-07-04] MEDS: METRONIDAZOLE 500MG/NS 100ML 100 ML IV SCH ×4 (00:04→18:00)
[2017-07-04] MEDS: METOPROLOL TARTRATE INJ 1 MG/ML VIAL IV PRN ×3 (00:04→21:08)
[2017-07-04] MEDS: DIPHENHYDRAMINE HCL INJ 50 MG/ML VIAL IM/IV PRN (01:39)
[2017-07-04 04:00] VITALS: BP 133/57
[2017-07-04] MEDS: METOPROLOL TARTRATE 50 MG TAB PO SCH ×5 (05:51→23:28)
[2017-07-04] MEDS: ACETAMINOPHEN 325 MG TAB PO SCH ×3 (06:00→19:52)
[2017-07-04] MEDS: CEFEPIME HCL 1 GM VIAL IV SCH ×3 (06:18→21:41)
[2017-07-04] MEDS: FAMOTIDINE 20 MG TAB PO SCH ×2 (07:30→16:30)
[2017-07-04 08:16] VITALS: BP 138/61
[2017-07-04] MEDS: AMIODARONE HCL 200 MG TAB PO SCH ×2 (09:00→19:50)
[2017-07-04 09:39] LABS: BASOPHILS # (AUTO) 0.1 (0.0-0.1); BASOPHILS % 0.3 % (0.0-1.0); EOSINOPHILS # (AUTO) 0.2 (0.0-0.4); EOSINOPHILS % 0.9 % (0.0-6.0); HEMATOCRIT 24.4 % (34.2-44.1); HEMOGLOBIN 8.5 g/dL (12.0-16.0); LYMPHOCYTES # (AUTO) 2.1 (1.0-3.2); LYMPHOCYTES % 9.8 % (18.0-39.1); MEAN CORPUSCULAR HEMOGLOBIN 31.3 pg (28-32); MEAN CORPUSCULAR HGB CONC 34.8 g/dL (31-35); MEAN CORPUSCULAR VOLUME 89.7 fL (81-99); MONOCYTES # (AUTO) 2.2 (0.2-0.8); NEUTROPHILS # (AUTO) 16.2 (2.1-6.9); NEUTROPHILS % 74.9 % (38.7-80.0); PLATELET COUNT 324 x10e3/uL (140-360); RED BLOOD COUNT 2.72 x10e6/uL (3.6-5.1); RED CELL DISTRIBUTION WIDTH 14.5 % (11.7-14.4)
[2017-07-04 10:07] LABS: ANION GAP 7.4 mmol/L (8-16); BLOOD UREA NITROGEN 16 mg/dL (7-26); BUN/CREATININE RATIO 28 (6-25); CALCIUM 7.5 mg/dL (8.4-10.2); CARBON DIOXIDE 24 mmol/L (22-29); CHLORIDE 101 mmol/L (98-107); CREATININE, SERUM 0.58 mg/dL (0.57-1.11); EST GLOMERULAR FILTRATION RATE > 60 ML/MIN (60-); GLUCOSE 125 mg/dL (74-118); MAGNESIUM 1.6 MG/DL (1.3-2.1); POTASSIUM 3.4 mmol/L (3.5-5.1); SODIUM 129 mmol/L (136-145)
[2017-07-04 11:35] LABS: BAND NEUTROPHILS % (MANUAL) 18 %; LYMPHOCYTES % (MANUAL) 16 % (19-48); MONOCYTES % (MANUAL) 6 % (3.4-9.0); NEUTROPHILS % (MANUAL) 60 % (40-74); PLATELET ESTIMATE ADEQUATE; PLATELET MORPHOLOGY COMMENT NORMAL; RBC MORPHOLOGY COMMENT NORMAL
--- NOTE | 2017-07-04 11:55 | Progress Note ---
DATE: July 03, 2017 MEDICINE PROGRESS NOTE TIME OF SERVICE: 6 a.m. SUBJECTIVE: Overnight continues to have abdominal discomfort. No bowel movement. REVIEW OF SYSTEMS: Denies any chest pain. VITAL SIGNS: Reviewed. PHYSICAL EXAMINATION GENERAL APPEARANCE: A tired-appearing woman resting in bed. HEENT: Anicteric. CARDIOVASCULAR: Normal S1/S2. LUNGS: Moderate breath sounds. ABDOMEN: Soft, nondistended, mildly firm. EXTREMITIES: No edema. She has right hip dressing in place. SKIN: Dry. LABS: Reviewed. MEDICATIONS: Reviewed. ASSESSMENT: An 86-year-old woman. 1. New-onset atrial fibrillation with rapid ventricular response. 2. Fall/right hip fracture. Status post repair. 3. Right hip pain. 4. Ileus. 5. Normocytic anemia. 6. Acute psychosis/acute delirium. 7. Moderate hyperbilirubinemia. 8. Physical deconditioning. PLAN 1. Ambulate patient. 2. Clear-liquid diet. 3. Follow up labs. 4. Continue amiodarone and digoxin. 5. Rate control needed. 6. Xarelto. Job#: [id number] EV
[2017-07-04 13:10] VITALS: BP 121/60
[2017-07-04 16:34] VITALS: BP 182/74
--- NOTE | 2017-07-04 16:45 | Progress Note ---
DATE: July 04, 2017 MEDICINE PROGRESS NOTE TIME OF SERVICE: 6:12 A.m. SUBJECTIVE: Overnight, NG tube placed. Patient was vomiting some material. REVIEW OF SYSTEMS: Unreliable. VITAL SIGNS: Reviewed. PHYSICAL EXAMINATION GENERAL APPEARANCE: A tired-appearing woman resting in bed. HEENT: Anicteric. NG tube in place. CARDIOVASCULAR: Normal S1/S2. LUNGS: Moderate breath sounds. ABDOMEN: Nontender, mildly firm. EXTREMITIES: Right hip dressing in place, clean and dry. SKIN: Dry. PSYCHIATRIC: Flat affect. LABS: Reviewed. MEDICATIONS: Reviewed. ASSESSMENT: An 86-year-old woman. 1. New-onset atrial fibrillation with rapid ventricular response. 2. Postoperative ileus. 3. Fall with right hip fracture. Status post repair. 4. Right hip pain. 5. Normocytic anemia. 6. Acute psychosis/acute delirium. 7. Moderate hyperbilirubinemia. 8. Physical deconditioning. PLAN 1. Continue to ambulate patient today. Continue NG tube at this time. 2. Rate control. 3. Marked leukocytosis overnight. C. diff ordered and Flagyl started. Will obtain a CBC this morning. 4. Hyponatremia. Will reassess this morning. 5. Obtain labs this morning as well as electrolytes. Important to ambulate patient. Job#: [id number] ROSHNI
[2017-07-04 20:00] VITALS: BP 136/70
[2017-07-04] MEDS: ACETAMINOPHEN 1000 MG/100 ML IV SCH (23:28)
[2017-07-05] VITALS: BP 125/60
[2017-07-05] MEDS: METRONIDAZOLE 500MG/NS 100ML 100 ML IV SCH ×5 (00:11→23:45)
[2017-07-05] MEDS: METOPROLOL TARTRATE INJ 1 MG/ML VIAL IV PRN ×4 (00:46→20:20)
[2017-07-05] MEDS: DIPHENHYDRAMINE HCL INJ 50 MG/ML VIAL IM/IV PRN (02:23)
[2017-07-05] MEDS: DEXTROSE 5%/0.45% SOD CHL 1,000 ML IV SCH ×3 (03:15→16:35)
[2017-07-05 04:00] VITALS: BP 132/64
[2017-07-05] MEDS: SODIUM CHLORIDE 0.9% 250ML IRRIG IR SCH ×5 (05:27→21:20)
[2017-07-05] MEDS: ACETAMINOPHEN 1000 MG/100 ML IV SCH ×4 (05:43→23:30)
[2017-07-05] MEDS: METOPROLOL TARTRATE 50 MG TAB PO SCH ×4 (05:43→23:41)
[2017-07-05] MEDS: CEFEPIME HCL 1 GM VIAL IV SCH ×3 (05:43→22:15)
[2017-07-05] MEDS: ACETAMINOPHEN 325 MG TAB PO SCH ×3 (05:43→22:00)
[2017-07-05] MEDS: FAMOTIDINE 20 MG TAB PO SCH ×2 (07:30→16:30)
[2017-07-05] MEDS: AMIODARONE HCL 200 MG TAB PO SCH ×2 (08:06→21:00)
[2017-07-05 08:08] VITALS: BP 142/60
[2017-07-05 08:18] LABS: BASOPHILS # (AUTO) 0.1 (0.0-0.1); BASOPHILS % 0.4 % (0.0-1.0); EOSINOPHILS # (AUTO) 0.3 (0.0-0.4); EOSINOPHILS % 1.5 % (0.0-6.0); HEMATOCRIT 24.8 % (34.2-44.1); HEMOGLOBIN 8.6 g/dL (12.0-16.0); LYMPHOCYTES # (AUTO) 1.8 (1.0-3.2); LYMPHOCYTES % 9.3 % (18.0-39.1); MEAN CORPUSCULAR HEMOGLOBIN 30.7 pg (28-32); MEAN CORPUSCULAR HGB CONC 34.7 g/dL (31-35); MEAN CORPUSCULAR VOLUME 88.6 fL (81-99); MONOCYTES % 10.7 % (4.4-11.3); NEUTROPHILS # (AUTO) 13.7 (2.1-6.9); NEUTROPHILS % 73.4 % (38.7-80.0); PLATELET COUNT 339 x10e3/uL (140-360); RED CELL DISTRIBUTION WIDTH 14.6 % (11.7-14.4)
[2017-07-05 08:34] LABS: ANION GAP 7.7 mmol/L (8-16); BLOOD UREA NITROGEN 11 mg/dL (7-26); BUN/CREATININE RATIO 19 (6-25); CALCIUM 7.4 mg/dL (8.4-10.2); CARBON DIOXIDE 26 mmol/L (22-29); CHLORIDE 99 mmol/L (98-107); CREATININE, SERUM 0.58 mg/dL (0.57-1.11); EST GLOMERULAR FILTRATION RATE > 60 ML/MIN (60-); GLUCOSE 137 mg/dL (74-118); MAGNESIUM 1.4 MG/DL (1.3-2.1); PHOSPHORUS 2.2 MG/DL (2.3-4.7); SODIUM 130 mmol/L (136-145)
[2017-07-05 08:39] LABS: POTASSIUM 2.7 mmol/L (3.5-5.1)
[2017-07-05] MEDS ORDERED: WATER STERILE IV ONE (10:00)
[2017-07-05] MEDS ORDERED: POTASSIUM CHLORIDE IV ONE (10:00)
[2017-07-05] MEDS ORDERED: POTASSIUM CHL 40 MEQ in WATER STERILE 10ML VIAL 80 ML IV ONE (12:00)
[2017-07-05] MEDS ORDERED: MAGNESIUM SULF 1GRAM/DEXTROSE 100 ML IV ONE (12:00)
[2017-07-05 12:06] VITALS: BP 117/56
[2017-07-05 12:27] LABS: BAND NEUTROPHILS % (MANUAL) 15 %; EOSINOPHILS % (MANUAL) 1 % (0-7); LYMPHOCYTES % (MANUAL) 12 % (19-48); METAMYELOCYTES % (MANUAL) 2 % (0-0); MONOCYTES % (MANUAL) 9 % (3.4-9.0); NEUTROPHILS % (MANUAL) 61 % (40-74); PLATELET ESTIMATE SLIGHTLY INCREASED; PLATELET MORPHOLOGY COMMENT NORMAL; RBC MORPHOLOGY COMMENT NORMAL
--- NOTE | 2017-07-05 15:22 | Diagnostic Imaging Report ---
Exam: Abdominal film Clinical History: Abdominal distention Comparison: CT abdomen and pelvis 07/03/2017 DISCUSSION: Several air filled dilated loops of small bowel are noted in the central aspect of the abdomen, similar to previous CT and KUB. Marked improvement of previously visualized stomach distension. Enteric tube in place with tip projecting in the body. Markedly calcified left splenic artery. Left pleural effusion and likely associated compressive atelectasis. Orthopedic hardware is partially visualized in the right proximal femur. IMPRESSION: 1. Several air-filled dilated loops of small bowel are noted in the central aspect of the abdomen, similar to prior CT and KUB. 2. Marked improvement in previously visualized stomach distention. 3. Preliminary report provided 07/05/2017 at 0930 hours The staff physician below has personally reviewed this exam on the date of dictation. Signed by: Dr. Douglas Moses M.D. on 07/05/2017 3:18 PM
--- NOTE | 2017-07-05 16:04 | Diagnostic Imaging Report ---
Examination: Single AP view of the chest. COMPARISON: None. INDICATION: Line placement IMPRESSION: 1. Lines and Tubes: Interval placement of right-sided PICC line, with distal tip projecting in the distal SVC. Enteric tube is noted below the left hemidiaphragm, with distal aspect likely coiled in the fundus. The distal tip is not visualized. 2. Bilateral pleural effusions, left greater than right with likely associated atelectasis. 3. Cardiac silhouette is obscured. Central pulmonary venous congestion. 4. No acute bony abnormalities. Signed by: Dr. Douglas Moses M.D. on 07/05/2017 4:00 PM
[2017-07-05 16:15] VITALS: BP 132/78
[2017-07-05] MEDS: ENOXAPARIN 30 MG/0.3 ML SYR SC SCH (17:28)
[2017-07-05 20:00] VITALS: BP 117/71
[2017-07-06] VITALS: BP 135/72
[2017-07-06] MEDS: METOPROLOL TARTRATE INJ 1 MG/ML VIAL IV PRN ×5 (00:29→21:00)
[2017-07-06] MEDS: SODIUM CHLORIDE 0.9% 250ML IRRIG IR SCH ×6 (00:29→20:55)
[2017-07-06 03:49] VITALS: BP 128/60
[2017-07-06] MEDS: ACETAMINOPHEN 325 MG TAB PO SCH ×3 (05:18→20:46)
[2017-07-06] MEDS: METOPROLOL TARTRATE 50 MG TAB PO SCH ×4 (05:18→23:59)
[2017-07-06] MEDS: CEFEPIME HCL 1 GM VIAL IV SCH ×3 (06:12→21:40)
[2017-07-06] MEDS: METRONIDAZOLE 500MG/NS 100ML 100 ML IV SCH ×4 (06:12→23:45)
[2017-07-06 06:30] LABS: BASOPHILS # (AUTO) 0.1 (0.0-0.1); BASOPHILS % 0.6 % (0.0-1.0); EOSINOPHILS # (AUTO) 0.4 (0.0-0.4); EOSINOPHILS % 2.3 % (0.0-6.0); HEMOGLOBIN 8.9 g/dL (12.0-16.0); LYMPHOCYTES # (AUTO) 1.7 (1.0-3.2); LYMPHOCYTES % 10.4 % (18.0-39.1); MEAN CORPUSCULAR HEMOGLOBIN 31.1 pg (28-32); MEAN CORPUSCULAR HGB CONC 34.2 g/dL (31-35); MEAN CORPUSCULAR VOLUME 90.9 fL (81-99); MONOCYTES # (AUTO) 1.9 (0.2-0.8); MONOCYTES % 11.4 % (4.4-11.3); NEUTROPHILS # (AUTO) 11.5 (2.1-6.9); NEUTROPHILS % 68.8 % (38.7-80.0); PLATELET COUNT 375 x10e3/uL (140-360); RED BLOOD COUNT 2.86 x10e6/uL (3.6-5.1); RED CELL DISTRIBUTION WIDTH 15.9 % (11.7-14.4)
[2017-07-06 06:39] LABS: ANION GAP 8.5 mmol/L (8-16); BLOOD UREA NITROGEN 9 mg/dL (7-26); BUN/CREATININE RATIO 16 (6-25); CARBON DIOXIDE 30 mmol/L (22-29); CHLORIDE 100 mmol/L (98-107); CREATININE, SERUM 0.58 mg/dL (0.57-1.11); EST GLOMERULAR FILTRATION RATE > 60 ML/MIN (60-); GLUCOSE 129 mg/dL (74-118); POTASSIUM 3.5 mmol/L (3.5-5.1); SODIUM 135 mmol/L (136-145)
[2017-07-06] MEDS: DEXTROSE 5%/0.45% SOD CHL 1,000 ML IV SCH ×2 (06:57→19:15)
[2017-07-06] MEDS: FAMOTIDINE 20 MG TAB PO SCH ×2 (07:30→16:02)
[2017-07-06] MEDS: AMIODARONE HCL 200 MG TAB PO SCH ×2 (07:47→20:46)
[2017-07-06 08:13] LABS: ANISOCYTOSIS SLIGHT; BAND NEUTROPHILS % (MANUAL) 4 %; EOSINOPHILS % (MANUAL) 5 % (0-7); HYPOCHROMASIA SLIGHT; LYMPHOCYTES % (MANUAL) 11 % (19-48); MONOCYTES % (MANUAL) 9 % (3.4-9.0); NEUTROPHILS % (MANUAL) 68 % (40-74); POIKILOCYTOSIS SLIGHT; PROMYELOCYTES % (MANUAL) 1 % (0-0); RBC MORPHOLOGY COMMENT NORMAL
[2017-07-06 08:14] LABS: PLATELET ESTIMATE ADEQUATE; PLATELET MORPHOLOGY COMMENT NORMAL
[2017-07-06 08:27] VITALS: BP 142/79
[2017-07-06 12:00] VITALS: BP 131/60
--- NOTE | 2017-07-06 14:36 | Progress Note ---
DATE: July 06, 2017 INFECTIOUS DISEASE PROGRESS NOTE This is ID cross-cover for Dr. Burton. The patient is alert and responsive. I met her in the bedside chair. She is not coughing. No dyspnea at rest. She has an NG tube. No pain complaints. No vomiting or diarrhea. No genitourinary complaints. In the past 24 hours, maximum temperature was up to 98.3 degrees Fahrenheit. She is hemodynamically stable. There is no gross pallor, no obvious icterus. No oropharyngeal lesions. The neck is supple. The chest is symmetric. The lungs sound clear. Heart sounds are regular without a significant murmur. The abdomen is soft. Bowel sounds are present. No acute erythema of the extremities. Her white count is down to 16.6 from 22.8 on July 02. Her creatinine is 0.5. Her urine culture from June 30 showed no growth. Blood cultures are negative. IMPRESSION: She is on treatment for sepsis. I am told by the nursing staff that her Clostridium difficile test is negative. There is concern for bowel obstruction/ileus. Her white count is trending down. She is afebrile. I suggest continue current management. Monitor temperature, CBC, renal function. Continue to monitor clinical response to treatment. Job#: [id number] ROSHNI
[2017-07-06 16:00] VITALS: BP 170/72
[2017-07-06] MEDS: ENOXAPARIN 30 MG/0.3 ML SYR SC SCH (17:13)
[2017-07-06 20:00] VITALS: BP 142/73
[2017-07-07] MEDS: METOPROLOL TARTRATE INJ 1 MG/ML VIAL IV PRN ×9 (00:25→23:48)
[2017-07-07] MEDS: SODIUM CHLORIDE 0.9% 250ML IRRIG IR SCH ×6 (00:26→20:31)
[2017-07-07 00:44] VITALS: BP 138/93
[2017-07-07] MEDS: DEXTROSE 5%/0.45% SOD CHL 1,000 ML IV SCH ×3 (03:29→22:02)
--- NOTE | 2017-07-07 03:58 | Progress Note ---
DATE: July 05, 2017 TIME: 5:30 a.m. OVERNIGHT: No change. REVIEW OF SYSTEMS: Unreliable. PHYSICAL EXAMINATION VITAL SIGNS: Reviewed. GENERAL: A tired-appearing woman resting in bed. HEENT: Anicteric. NG tube. CARDIOVASCULAR: Normal S1 and S2. LUNGS: Moderate breath sounds. ABDOMEN: Soft, nontender and nondistended. EXTREMITIES: Right hip with dressing in place. SKIN: Dry. PSYCHIATRIC: Flat affect. LABS: Reviewed. MEDICATIONS: Reviewed. ASSESSMENT: An 86-year-old woman with: 1. New-onset atrial fibrillation with rapid ventricular response. 2. Fall with right hip fracture: Status post repair. 3. Acute delirium. 4. Severe hypokalemia. 5. Right hip pain. 6. Ileus. 7. Normocytic anemia. 8. Moderate hyperbilirubinemia. 9. Physical deconditioning. PLAN 1. Ambulate the patient. N.p.o. status. 2. Continue antiarrhythmic agents. 3. Discussed with nursing and family. Will need to get the patient out of bed most of the day and ambulate. Job#: [id number] ADAM
[2017-07-07 04:00] VITALS: BP 148/96
--- NOTE | 2017-07-07 04:03 | Progress Note ---
DATE: July 06, 2017 TIME: 5:30 a.m. OVERNIGHT: The patient had some black stool. She is now a little less confused. REVIEW OF SYSTEMS: Denies any chest pain or shortness of breath. PHYSICAL EXAMINATION VITAL SIGNS: Reviewed. GENERAL: A tired-appearing woman resting in bed. HEENT: Anicteric. CARDIOVASCULAR: Normal S1 and S2. LUNGS: Moderate breath sounds. ABDOMEN: Soft, nontender and nondistended. EXTREMITIES: Right hip with dressing in place. SKIN: Dry. PSYCHIATRIC: Flat affect. LABS: Reviewed. MEDICATIONS: Reviewed. ASSESSMENT: An 86-year-old woman with: 1. New-onset atrial fibrillation with rapid ventricular response. 2. Fall/right hip fracture: Status post repair. 3. Right hip pain. 4. Ileus. 5. Severe hypokalemia. 6. Normocytic anemia. 7. Acute psychosis/acute delirium. 8. Moderate hyperbilirubinemia. 9. Physical deconditioning. PLAN 1. Check labs now. 2. Ambulate the patient. 3. Leukocytosis beginning to improve on Flagyl. C. diff testing was negative. 4. All cultures remain negative. 5. Continue antiarrhythmic agents. Job#: [id number] ADAM
[2017-07-07] MEDS: METOPROLOL TARTRATE 50 MG TAB PO SCH ×4 (05:10→21:47)
[2017-07-07] MEDS: ACETAMINOPHEN 325 MG TAB PO SCH ×4 (05:10→21:47)
[2017-07-07] MEDS: CEFEPIME HCL 1 GM VIAL IV SCH ×3 (06:00→21:45)
[2017-07-07] MEDS: METRONIDAZOLE 500MG/NS 100ML 100 ML IV SCH ×3 (06:15→17:53)
[2017-07-07 07:30] LABS: PHOSPHORUS 1.8 MG/DL (2.3-4.7)
[2017-07-07] MEDS: FAMOTIDINE 20 MG TAB PO SCH ×2 (07:30→16:30)
[2017-07-07] MEDS: AMIODARONE HCL 200 MG TAB PO SCH ×2 (07:48→19:36)
[2017-07-07 09:03] VITALS: BP 142/80
[2017-07-07 12:38] VITALS: BP 140/74
--- NOTE | 2017-07-07 12:47 | Progress Note ---
DATE: July 07, 2017 INFECTIOUS DISEASE PROGRESS NOTE This is ID cross-cover for Dr. Burton. The patient is in bedside chair. She is alert and responsive. An NG tube remains in place. No acute distress. No report of nausea, vomiting or diarrhea. No adverse medication reaction reported. PHYSICAL EXAMINATION VITAL SIGNS: In the past 24 hours, maximum temperature was up to 98.9 degrees Fahrenheit. She is hemodynamically stable. HEENT: There is no pallor, no icterus. No oropharyngeal lesions. NECK: Supple. CHEST: Symmetric. LUNGS: Clear. HEART: Sounds are regular without a significant murmur. ABDOMEN: Full, soft. Bowel sounds are present. No significant tenderness elicited. EXTREMITIES: No acute erythema of her extremities. LABS: On July 06, 2017, her white count was 16.6, down from 33.1 on July 03, 2017. Her creatinine 0.5 on July 06, 2017. There are no significant positive culture reports. IMPRESSION: She still has significant leukocytosis. She is afebrile. She may have bowel obstruction due to ileus or other etiology. I suggest continue current management. Monitor temperature, CBC, renal function. She needs GI and surgery followups. Job#: [id number] VAS
[2017-07-07] MEDS: ENOXAPARIN 30 MG/0.3 ML SYR SC SCH (17:53)
[2017-07-07 18:02] LABS: BASOPHILS # (AUTO) 0.1 (0.0-0.1); BASOPHILS % 0.5 % (0.0-1.0); EOSINOPHILS % 0.1 % (0.0-6.0); HEMATOCRIT 26.7 % (34.2-44.1); LYMPHOCYTES # (AUTO) 1.5 (1.0-3.2); LYMPHOCYTES % 9.4 % (18.0-39.1); MEAN CORPUSCULAR HEMOGLOBIN 31.4 pg (28-32); MEAN CORPUSCULAR HGB CONC 33.7 g/dL (31-35); MONOCYTES # (AUTO) 2.2 (0.2-0.8); MONOCYTES % 13.8 % (4.4-11.3); NEUTROPHILS # (AUTO) 11.4 (2.1-6.9); NEUTROPHILS % 70.8 % (38.7-80.0); PLATELET COUNT 349 x10e3/uL (140-360); RED BLOOD COUNT 2.87 x10e6/uL (3.6-5.1)
[2017-07-07 18:19] LABS: ANION GAP 8.3 mmol/L (8-16); BLOOD UREA NITROGEN 8 mg/dL (7-26); BUN/CREATININE RATIO 13 (6-25); CARBON DIOXIDE 33 mmol/L (22-29); CHLORIDE 94 mmol/L (98-107); CREATININE, SERUM 0.63 mg/dL (0.57-1.11); EST GLOMERULAR FILTRATION RATE > 60 ML/MIN (60-); SODIUM 133 mmol/L (136-145)
[2017-07-07 18:29] LABS: GLUCOSE 489 mg/dL (74-118); POTASSIUM 2.3 mmol/L (3.5-5.1)
[2017-07-07 18:56] VITALS: BP 150/79
[2017-07-07 19:20] LABS: ANION GAP 11.8 mmol/L (8-16); BLOOD UREA NITROGEN 9 mg/dL (7-26); BUN/CREATININE RATIO 16 (6-25); CALCIUM 7.7 mg/dL (8.4-10.2); CARBON DIOXIDE 34 mmol/L (22-29); CHLORIDE 94 mmol/L (98-107); CREATININE, SERUM 0.57 mg/dL (0.57-1.11); EST GLOMERULAR FILTRATION RATE > 60 ML/MIN (60-); GLUCOSE 123 mg/dL (74-118); SODIUM 137 mmol/L (136-145)
[2017-07-07 19:22] LABS: POTASSIUM 2.8 mmol/L (3.5-5.1)
[2017-07-07] MEDS ORDERED: POTASSIUM CHLORIDE 20MEQ/100ML 200 ML IV ONE (19:30)
[2017-07-07] MEDS ORDERED: POTASSIUM CHL 40 MEQ in SODIUM CHLORIDE 0.9% 250ML 250 ML IV ONE (19:45)
[2017-07-07 19:48] LABS: HYPOCHROMASIA MODERATE; LYMPHOCYTES % (MANUAL) 8 % (19-48); METAMYELOCYTES % (MANUAL) 1 % (0-0); MONOCYTES % (MANUAL) 14 % (3.4-9.0); MYELOCYTES % (MANUAL) 1 % (0-0); NEUTROPHILS % (MANUAL) 73 % (40-74); PLATELET ESTIMATE ADEQUATE; POLYCHROMASIA FEW; RBC MORPHOLOGY COMMENT NORMAL
[2017-07-07 20:00] VITALS: BP 129/67
[2017-07-08] VITALS: BP 133/64
[2017-07-08] MEDS: METRONIDAZOLE 500MG/NS 100ML 100 ML IV SCH ×5 (00:25→18:59)
[2017-07-08] MEDS: SODIUM CHLORIDE 0.9% 250ML IRRIG IR SCH ×5 (00:25→16:30)
[2017-07-08] MEDS: DEXTROSE 5%/0.45% SOD CHL 1,000 ML IV SCH ×2 (02:55→11:15)
[2017-07-08 04:00] VITALS: BP 143/95
[2017-07-08] MEDS: METOPROLOL TARTRATE INJ 1 MG/ML VIAL IV PRN ×6 (04:56→21:05)
[2017-07-08] MEDS ORDERED: POTASSIUM CHLORIDE 20MEQ/100ML 200 ML IV ONE ×2 (05:00→14:15)
[2017-07-08] MEDS ORDERED: POTASSIUM CHL 40 MEQ in SODIUM CHLORIDE 0.9% 250ML 250 ML IV SCH (05:00)
[2017-07-08] MEDS: METOPROLOL TARTRATE 50 MG TAB PO SCH ×4 (06:00→19:31)
[2017-07-08] MEDS: CEFEPIME HCL 1 GM VIAL IV SCH ×3 (06:12→21:05)
[2017-07-08] MEDS: FAMOTIDINE 20 MG TAB PO SCH ×2 (07:30→16:30)
[2017-07-08 08:11] VITALS: BP 124/73
[2017-07-08] MEDS: AMIODARONE HCL 200 MG TAB PO SCH ×2 (09:00→19:31)
[2017-07-08 11:26] LABS: BASOPHILS # (AUTO) 0.1 (0.0-0.1); BASOPHILS % 0.4 % (0.0-1.0); EOSINOPHILS # (AUTO) 0.1 (0.0-0.4); EOSINOPHILS % 0.3 % (0.0-6.0); HEMATOCRIT 28.4 % (34.2-44.1); HEMOGLOBIN 9.3 g/dL (12.0-16.0); LYMPHOCYTES # (AUTO) 1.5 (1.0-3.2); LYMPHOCYTES % 9.2 % (18.0-39.1); MEAN CORPUSCULAR HEMOGLOBIN 30.9 pg (28-32); MEAN CORPUSCULAR HGB CONC 32.7 g/dL (31-35); MEAN CORPUSCULAR VOLUME 94.4 fL (81-99); MONOCYTES # (AUTO) 2.4 (0.2-0.8); MONOCYTES % 14.4 % (4.4-11.3); NEUTROPHILS # (AUTO) 11.7 (2.1-6.9); NEUTROPHILS % 71.4 % (38.7-80.0); PLATELET COUNT 319 x10e3/uL (140-360); RED BLOOD COUNT 3.01 x10e6/uL (3.6-5.1); RED CELL DISTRIBUTION WIDTH 17.4 % (11.7-14.4)
[2017-07-08 11:45] LABS: ANION GAP 7.9 mmol/L (8-16); BLOOD UREA NITROGEN 9 mg/dL (7-26); BUN/CREATININE RATIO 16 (6-25); CALCIUM 7.9 mg/dL (8.4-10.2); CARBON DIOXIDE 39 mmol/L (22-29); CHLORIDE 97 mmol/L (98-107); CREATININE, SERUM 0.56 mg/dL (0.57-1.11); EST GLOMERULAR FILTRATION RATE > 60 ML/MIN (60-); GLUCOSE 124 mg/dL (74-118); MAGNESIUM 1.5 MG/DL (1.3-2.1); PHOSPHORUS 1.7 MG/DL (2.3-4.7); SODIUM 141 mmol/L (136-145)
[2017-07-08 12:11] LABS: POTASSIUM 2.9 mmol/L (3.5-5.1)
[2017-07-08 12:37] VITALS: BP 138/72
[2017-07-08] MEDS ORDERED: WATER STERILE IV ONE (13:30)
[2017-07-08] MEDS ORDERED: POTASSIUM CHLORIDE IV ONE (13:30)
[2017-07-08] MEDS: ACETAMINOPHEN 325 MG TAB PO SCH ×3 (14:00→21:37)
--- NOTE | 2017-07-08 16:41 | Consultation ---
DATE OF CONSULTATION: July 08, 2017 CHIEF COMPLAINT: Occult blood in the stool. HISTORY OF PRESENT ILLNESS: A very pleasant, 86-year-old lady who comes in with occult blood in the stool. The patient had a recent femur and hip fracture that required surgery. The patient has an NG tube due to an ileus. She has a hemoglobin that is stable, around 10, no gross bleeding reported. She has NG suction at this time. PAST MEDICAL HISTORY: See old records. FAMILY HISTORY: Noncontributory. SOCIAL HISTORY: She lives at home. No toxic habits. PHYSICAL EXAMINATION VITAL SIGNS: Blood pressure 140/80, pulse 80, temperature 98. GENERAL: A well-nourished, white lady in no distress. HEENT: No pallor. ABDOMEN: Soft. Nontender. EXTREMITIES: No edema. ASSESSMENT AND PLAN: Occult blood in the stool. Now, blood coming out of the NG tube. I recommend prophylaxis with Protonix, KUB, remove NG tube. Follow closely. I do not see any need for any endoscopic procedure at this time. Certainly, colonoscopy is counter indicated with the previous hip fracture. Will follow the patient with you. Job#: [id number]
--- NOTE | 2017-07-08 16:45 | Diagnostic Imaging Report ---
PROCEDURE:X-RAY ABDOMEN - KUB COMPARISON:Patients [facility], DX, ABDOMEN-1VIEW (KUB), 07/05/2017, 8:40. INDICATIONS:ILEUS FINDINGS: See conclusion. CONCLUSION: 1. Several dilated, air-filled loops of small bowel are again noted in the central portion of the abdomen, however, decreased in number when compared to prior exam. 2. Stable position of previously visualized enteric tube. 3. No acute bony abnormalities. 4. No calcifications project over the genitourinary system. Douglas Moses M.D. Dictated by: Douglas Moses M.D. on 07/08/2017 at 16:54 Electronically approved by: Douglas Moses M.D. on 07/08/2017 at 16:54
[2017-07-08 17:10] VITALS: BP 126/91
[2017-07-08] MEDS ORDERED: POTASSIUM CHLORIDE 20 MEQ in DEXTROSE 5%/0.45% SOD CHL 1,000 ML IV SCH (17:48)
[2017-07-08 20:00] VITALS: BP 141/61
--- NOTE | 2017-07-08 20:02 | Progress Note ---
DATE: July 08, 2017 SUBJECTIVE: The patient is awake. She is complaining of headache. There is no complaint of abdominal pain. No report of nausea, vomiting or diarrhea. No overt medication reaction reported. OBJECTIVE VITAL SIGNS: In the past 24 hours, maximum temperature was 98.9 degrees Fahrenheit. GENERAL: She is hemodynamically stable. HEENT: She has no gross pallor. No obvious icterus. No oropharyngeal lesions. NECK: Supple. CHEST: Symmetric. LUNGS: Clear. HEART: Sounds are regular without any significant murmur. ABDOMEN: Full. No significant tenderness elicited. Bowel sounds are present. EXTREMITIES: No acute erythema of extremities. Her white count is 16.3. 10.0. Creatinine 0.5. Clostridium difficile test on July 04 was negative. Urine culture on June 30 negative. Blood cultures on June 30 were negative. Plane film of the abdomen is reported with findings of ileus with some improvement. IMPRESSION: She has persistent leukocytosis. She is afebrile. She is on treatment for probable bowel obstruction. I suggest to continue current management and monitor temperature, CBC and renal function. The patient is being followed by gastroenterology. Job#: [id number]
[2017-07-08] MEDS: PANTOPRAZOLE 40 MG 10ML VIAL IV SCH (21:05)
[2017-07-08] MEDS: D5.45%NS/KCL 20MEQ 1,000 ML IV SCH (21:05)
[2017-07-09] VITALS: BP 123/56
[2017-07-09] MEDS: METRONIDAZOLE 500MG/NS 100ML 100 ML IV SCH ×5 (00:31→23:55)
[2017-07-09 04:00] VITALS: BP_SYST 123; BP_SYST 140; BP_DIAS 56; BP_DIAS 69
[2017-07-09] MEDS: CEFEPIME HCL 1 GM VIAL IV SCH ×3 (05:16→22:30)
[2017-07-09] MEDS: METOPROLOL TARTRATE INJ 1 MG/ML VIAL IV PRN ×4 (05:17→17:52)
[2017-07-09 06:00] LABS: BASOPHILS # (AUTO) 0.1 (0.0-0.1); BASOPHILS % 0.4 % (0.0-1.0); EOSINOPHILS # (AUTO) 0.1 (0.0-0.4); EOSINOPHILS % 0.6 % (0.0-6.0); HEMATOCRIT 26.3 % (34.2-44.1); HEMOGLOBIN 8.3 g/dL (12.0-16.0); LYMPHOCYTES # (AUTO) 1.7 (1.0-3.2); LYMPHOCYTES % 11.7 % (18.0-39.1); MEAN CORPUSCULAR HEMOGLOBIN 30.5 pg (28-32); MEAN CORPUSCULAR HGB CONC 31.6 g/dL (31-35); MEAN CORPUSCULAR VOLUME 96.7 fL (81-99); MONOCYTES # (AUTO) 1.8 (0.2-0.8); MONOCYTES % 12.5 % (4.4-11.3); NEUTROPHILS % 70.9 % (38.7-80.0); PLATELET COUNT 280 x10e3/uL (140-360); RED BLOOD COUNT 2.72 x10e6/uL (3.6-5.1)
--- NOTE | 2017-07-09 06:50 | Diagnostic Imaging Report ---
ABDOMEN-1VIEW (KUB) Clinical history: Ileus Technique: AP view abdomen Comparison: 07/05/2017 Findings: Hemidiaphragms are excluded from view. Stable NG tube looped over the left upper quadrant, expected stomach. Stable to slight decrease in diffuse dilation of bowel loops. Vascular calcifications. Impression: Persistent ileus. Signed by: Dr Amarilis Jones MD on 07/09/2017 6:46 AM
--- NOTE | 2017-07-09 07:27 | Progress Note ---
DATE: July 09, 2017 SUBJECTIVE: The patient is resting quietly. The nursing staff reports that she had 2 loose BMs overnight. No nausea or vomiting. No complaint of abdominal pain. OBJECTIVE: VITAL SIGNS: Maximum temperature in the past 24 hours was up to 98.7 degrees Fahrenheit. GENERAL: She is hemodynamically stable. HEENT: There is no pallor, no icterus. No oropharyngeal lesions. NECK: Supple. CHEST: Symmetric. LUNGS: Sounds clear. HEART: Sounds are regular without a new murmur. ABDOMEN: Full, soft. Bowel sounds are present. EXTREMITIES: No acute erythema of the extremities. Her white count today is 14.0. Her creatinine 0.5. There are no new positive culture reports. IMPRESSION: She has been on empiric treatment for sepsis with probable bowel obstruction. Her leukocytosis is trending down. She is afebrile. I suggest continue current management. She needs gastroenterology followup. Job#: [id number]
[2017-07-09] MEDS: FAMOTIDINE 20 MG TAB PO SCH ×2 (07:30→15:23)
[2017-07-09] MEDS: METOPROLOL TARTRATE 50 MG TAB PO SCH ×3 (07:56→20:59)
[2017-07-09] MEDS: AMIODARONE HCL 200 MG TAB PO SCH ×3 (07:56→20:59)
[2017-07-09 08:37] VITALS: BP 133/72
[2017-07-09] MEDS: PANTOPRAZOLE 40 MG 10ML VIAL IV SCH ×2 (08:44→20:53)
[2017-07-09 12:55] VITALS: BP 140/65
[2017-07-09] MEDS: ACETAMINOPHEN 325 MG TAB PO SCH ×2 (13:08→22:00)
[2017-07-09] MEDS: D5.45%NS/KCL 20MEQ 1,000 ML IV SCH (14:15)
[2017-07-09 16:35] VITALS: BP 140/78
--- NOTE | 2017-07-09 16:52 | Diagnostic Imaging Report ---
PROCEDURE:HIP RIGHT 2-3 VW (+/- PELVIS) COMPARISON:CT abdomen/pelvis 07/03/17, right hip x-rays 06/28/17. INDICATIONS:POST RIGHT HIP SURGERY FINDINGS: Intramedullary rupal and pin in the right femur are stable in position transfixing an intertrochanteric fracture in anatomic alignment. The hardware is intact without surrounding lucency to suggest loosening. Subcutaneous emphysema at the operative site has resolved. Multiple skin chelsey remain. The left hip is intact and appropriately situated. Mild degenerative changes of the lower lumbar spine are stable. The pelvis is intact without focal osseous lesion. Gaseous distention of the bowel has diminished. No pneumatosis is identified on these images. CONCLUSION: Stable intramedullary rupal and pin in the right femur. No evidence of hardware complication or failure. Resolved subcutaneous emphysema. Dictated by: Lelo Lynch M.D. on 07/09/2017 at 17:00 Electronically approved by: Lelo Lynch M.D. on 07/09/2017 at 17:00
[2017-07-09 20:00] VITALS: BP 146/67
[2017-07-10] VITALS: BP 118/77
[2017-07-10] MEDS: METOPROLOL TARTRATE INJ 1 MG/ML VIAL IV PRN ×3 (00:05→14:04)
[2017-07-10] MEDS: D5.45%NS/KCL 20MEQ 1,000 ML IV SCH ×2 (03:00→10:15)
[2017-07-10 04:00] VITALS: BP 122/67
[2017-07-10] MEDS: ACETAMINOPHEN 325 MG TAB PO SCH ×3 (05:31→21:43)
[2017-07-10] MEDS: CEFEPIME HCL 1 GM VIAL IV SCH ×3 (05:34→21:43)
[2017-07-10] MEDS: METRONIDAZOLE 500MG/NS 100ML 100 ML IV SCH ×4 (05:34→23:46)
[2017-07-10 05:55] LABS: HEMATOCRIT 27.6 % (34.2-44.1); HEMOGLOBIN 8.8 g/dL (12.0-16.0); MEAN CORPUSCULAR HGB CONC 31.9 g/dL (31-35); MEAN CORPUSCULAR VOLUME 97.2 fL (81-99); PLATELET COUNT 296 x10e3/uL (140-360); RED BLOOD COUNT 2.84 x10e6/uL (3.6-5.1); RED CELL DISTRIBUTION WIDTH 17.9 % (11.7-14.4)
--- NOTE | 2017-07-10 06:34 | Diagnostic Imaging Report ---
ABDOMEN-1VIEW (KUB) Clinical history: Technique: AP view abdomen Comparison: 07/05/2017 Findings: Degraded by motion artifact. Left pleural effusion is noted. Stable NG tube looped over the left upper quadrant, expected stomach. Persistent diffuse dilation of bowel loops. Vascular calcifications. Partially imaged right femoral hardware. Impression: Persistent ileus. Signed by: Dr Amarilis Jones MD on 07/10/2017 6:31 AM
[2017-07-10] MEDS: FAMOTIDINE 20 MG TAB PO SCH ×2 (07:30→16:01)
[2017-07-10] MEDS: AMIODARONE HCL 200 MG TAB PO SCH ×2 (08:05→21:08)
[2017-07-10] MEDS: METOPROLOL TARTRATE 50 MG TAB PO SCH ×2 (08:05→21:09)
[2017-07-10 08:13] VITALS: BP 151/69
[2017-07-10] MEDS: PANTOPRAZOLE 40 MG 10ML VIAL IV SCH ×2 (08:31→21:09)
[2017-07-10 11:46] VITALS: BP 169/74
[2017-07-10 12:34] LABS: BASOPHILS # (AUTO) 0.1 (0.0-0.1); BASOPHILS % 0.6 % (0.0-1.0); EOSINOPHILS # (AUTO) 0.1 (0.0-0.4); EOSINOPHILS % 0.6 % (0.0-6.0); HEMATOCRIT 27.8 % (34.2-44.1); LYMPHOCYTES # (AUTO) 1.7 (1.0-3.2); LYMPHOCYTES % 11.6 % (18.0-39.1); MEAN CORPUSCULAR HGB CONC 32.4 g/dL (31-35); MEAN CORPUSCULAR VOLUME 95.9 fL (81-99); MONOCYTES # (AUTO) 1.7 (0.2-0.8); MONOCYTES % 11.9 % (4.4-11.3); NEUTROPHILS # (AUTO) 10.3 (2.1-6.9); NEUTROPHILS % 70.9 % (38.7-80.0); PLATELET COUNT 286 x10e3/uL (140-360); RED CELL DISTRIBUTION WIDTH 17.7 % (11.7-14.4)
[2017-07-10 12:52] LABS: ALANINE AMINOTRANSFERASE 17 IU/L (0-55); ALBUMIN 2.1 g/dL (3.5-5.0); ALBUMIN/GLOBULIN RATIO 0.9 (0.8-2.0); ALKALINE PHOSPHATASE 56 IU/L (40-150); ANION GAP 9.9 mmol/L (8-16); BLOOD UREA NITROGEN 12 mg/dL (7-26); BUN/CREATININE RATIO 20 (6-25); CALCIUM 7.9 mg/dL (8.4-10.2); CARBON DIOXIDE 33 mmol/L (22-29); CHLORIDE 102 mmol/L (98-107); EST GLOMERULAR FILTRATION RATE > 60 ML/MIN (60-); GLUCOSE 142 mg/dL (74-118); SODIUM 142 mmol/L (136-145)
[2017-07-10 12:54] LABS: POTASSIUM 2.9 mmol/L (3.5-5.1)
[2017-07-10] MEDS ORDERED: POTASSIUM CHL 40 MEQ in WATER STERILE 10ML VIAL 80 ML IV ONE (13:00)
[2017-07-10 13:20] LABS: BAND NEUTROPHILS % (MANUAL) 1 %; LYMPHOCYTES % (MANUAL) 15 % (19-48); METAMYELOCYTES % (MANUAL) 1 % (0-0); MONOCYTES % (MANUAL) 6 % (3.4-9.0); NEUTROPHILS % (MANUAL) 77 % (40-74)
[2017-07-10 13:23] LABS: PLATELET ESTIMATE ADEQUATE; PLATELET MORPHOLOGY COMMENT NORMAL; RBC MORPHOLOGY COMMENT ABNORMAL
[2017-07-10 13:25] LABS: ANISOCYTOSIS MODERATE; POIKILOCYTOSIS SLIGHT; POLYCHROMASIA SL
[2017-07-10 13:27] LABS: STOMATOCYTES SLIGHT
[2017-07-10] MEDS: ACETAZOLAMIDE SODIUM 500 MG/VIAL IV SCH ×2 (14:03→21:09)
[2017-07-10] MEDS: METOCLOPRAMIDE HCL 10 MG/2ML VIAL IV SCH ×3 (14:06→23:46)
[2017-07-10] MEDS: SOD PHOSPHATE/SOD BIPHOSPHATE ENEMA 132 ML BTL PR SCH ×2 (14:06→18:44)
--- NOTE | 2017-07-10 15:48 | Progress Note ---
DATE: July 10, 2017 ID cross cover for Dr. Burton. The patient is fairly stable. She is in no acute distress. The nursing staff reported that there is no diarrhea currently. No report of nausea or vomiting. No other systemic complaints reported. PHYSICAL EXAMINATION VITALS: Overnight, she had temperature up to 99.1 degrees Fahrenheit. Her most recent temperature is 97.4. She is hemodynamically stable. HEENT: There is no pallor. No icterus. No oropharyngeal lesions. NECK: Supple. CHEST: Symmetric. Lungs are clear. HEART: Sounds are regular. No significant murmur. ABDOMEN: Soft. Bowel sounds are present. No significant tenderness elicited. EXTREMITIES: No acute erythema of her extremities. Her white count is 15 up from 14. Her creatinine is 0.5. There are no new positive culture reports. IMPRESSION: She has been on empiric antibiotic treatment for sepsis. There is concern for bowel obstruction. The patient still from an infectious disease point, she still has leukocytosis. There is intermittent low-grade fevers. I suggest continue current management. She has been seen by gastroenterology. Consider surgical evaluation. Consider repeat CT scan of her abdomen and pelvis for further evaluation. Job#: [id number] ADAM
[2017-07-10 16:24] VITALS: BP 110/57
[2017-07-10] MEDS: CENTRAL TPN FORMULA 1 BAG IV SCH (20:23)
[2017-07-10 20:31] VITALS: BP 138/73
[2017-07-10] MEDS ORDERED: POTASSIUM CHL 40 MEQ in WATER STERILE 10ML VIAL 80 ML IV SCH (21:00)
[2017-07-10] MEDS ORDERED: POTASSIUM CHLORIDE 20MEQ/100ML 200 ML ONE (21:42)
[2017-07-10] MEDS ORDERED: SODIUM CHLORIDE 0.9% 250ML 250 ML ONE (21:46)
[2017-07-11] VITALS (8 sets, daily range): BP systolic 112–148; BP diastolic 56–73
[2017-07-11] MEDS ORDERED: DEXTROSE 50% SYRINGE 50 ML IV PRN
[2017-07-11 00:05] LABS: CALCIUM IONIZED 1.1 mmol/L (1.09-1.30)
[2017-07-11] MEDS: INSULIN REGULAR, HUMAN 100 UNIT/1 ML 3ML VIAL SQ SCH ×4 (00:12→18:09)
[2017-07-11 00:33] LABS: ALBUMIN 2.3 g/dL (3.5-5.0); BILIRUBIN,DIRECT 0.5 mg/dL (0.0-5.0); MAGNESIUM 1.3 MG/DL (1.3-2.1); PHOSPHORUS 2.1 MG/DL (2.3-4.7)
--- NOTE | 2017-07-11 03:17 | Progress Note ---
DATE: July 10, 2017 SUBJECTIVE: Ms. Schaefer is doing well. Actually, the NG has been clamped and has had very minimal discharge. She had a small bowel movement. PHYSICAL EXAMINATION: Unremarkable. LABORATORY DATA: There is mild hypokalemia, which is apparently in the process of being corrected. ASSESSMENT: Elderly female with recent orthopedic fracture with persistent ileus. PLAN 1. Continue aggressively to correct her hypokalemia. 2. Will recheck KUB. 3. Will follow. Job#: [id number] FL
[2017-07-11] MEDS: ACETAMINOPHEN 325 MG TAB PO SCH ×3 (05:46→21:36)
[2017-07-11] MEDS: CEFEPIME HCL 1 GM VIAL IV SCH ×3 (06:11→21:36)
[2017-07-11] MEDS: METRONIDAZOLE 500MG/NS 100ML 100 ML IV SCH ×4 (06:11→21:33)
[2017-07-11] MEDS: METOCLOPRAMIDE HCL 10 MG/2ML VIAL IV SCH ×3 (06:11→18:00)
--- NOTE | 2017-07-11 06:38 | Diagnostic Imaging Report ---
ABDOMEN-1VIEW (KUB) Clinical history: Ileus Technique: AP view abdomen Comparison: 07/10/2017 Findings: Degraded by motion artifact. Left pleural effusion is noted. Stable NG tube looped over the left upper quadrant, expected stomach. Persistent moderate diffuse dilation of bowel loops. Vascular calcifications. Partially imaged right femoral hardware. Impression: Overall no significant change. Persistent ileus. Signed by: Dr Amarilis Jones MD on 07/11/2017 6:34 AM
[2017-07-11 07:02] LABS: BASOPHILS # (AUTO) 0.1 (0.0-0.1); BASOPHILS % 0.5 % (0.0-1.0); EOSINOPHILS # (AUTO) 0.1 (0.0-0.4); EOSINOPHILS % 0.6 % (0.0-6.0); HEMATOCRIT 26.1 % (34.2-44.1); HEMOGLOBIN 8.3 g/dL (12.0-16.0); LYMPHOCYTES # (AUTO) 1.4 (1.0-3.2); LYMPHOCYTES % 10.6 % (18.0-39.1); MEAN CORPUSCULAR HEMOGLOBIN 31.1 pg (28-32); MEAN CORPUSCULAR HGB CONC 31.8 g/dL (31-35); MEAN CORPUSCULAR VOLUME 97.8 fL (81-99); MONOCYTES # (AUTO) 1.8 (0.2-0.8); MONOCYTES % 13.6 % (4.4-11.3); NEUTROPHILS # (AUTO) 9.2 (2.1-6.9); NEUTROPHILS % 69.3 % (38.7-80.0); PLATELET COUNT 345 x10e3/uL (140-360); RED BLOOD COUNT 2.67 x10e6/uL (3.6-5.1); RED CELL DISTRIBUTION WIDTH 17.4 % (11.7-14.4)
[2017-07-11] MEDS: FAMOTIDINE 20 MG TAB PO SCH ×2 (07:30→16:30)
[2017-07-11] MEDS ORDERED: INSULIN REGULAR, HUMAN 100 UNIT/1 ML 3ML VIAL SQ SCH (07:30)
[2017-07-11 07:32] LABS: ALANINE AMINOTRANSFERASE 13 IU/L (0-55); ALBUMIN 1.9 g/dL (3.5-5.0); ALBUMIN/GLOBULIN RATIO 0.8 (0.8-2.0); ALKALINE PHOSPHATASE 51 IU/L (40-150); ANION GAP 8.9 mmol/L (8-16); BLOOD UREA NITROGEN 17 mg/dL (7-26); BUN/CREATININE RATIO 28 (6-25); CALCIUM 7.8 mg/dL (8.4-10.2); CARBON DIOXIDE 26 mmol/L (22-29); CHLORIDE 107 mmol/L (98-107); CREATININE, SERUM 0.61 mg/dL (0.57-1.11); EST GLOMERULAR FILTRATION RATE > 60 ML/MIN (60-); GLUCOSE 169 mg/dL (74-118); SODIUM 139 mmol/L (136-145)
[2017-07-11 07:40] LABS: POTASSIUM 2.9 mmol/L (3.5-5.1)
[2017-07-11] MEDS: SOD PHOSPHATE/SOD BIPHOSPHATE ENEMA 132 ML BTL PR SCH ×2 (09:36→17:00)
[2017-07-11] MEDS: METOPROLOL TARTRATE 50 MG TAB PO SCH ×2 (09:36→21:00)
[2017-07-11] MEDS: PANTOPRAZOLE 40 MG 10ML VIAL IV SCH ×2 (09:36→21:34)
[2017-07-11] MEDS: AMIODARONE HCL 200 MG TAB PO SCH ×2 (09:36→21:00)
[2017-07-11] MEDS: POTASSIUM CHL 40 MEQ in WATER STERILE 10ML VIAL 80 ML IV SCH ×2 (09:55→16:45)
[2017-07-11 11:36] LABS: BAND NEUTROPHILS % (MANUAL) 15 %; LYMPHOCYTES % (MANUAL) 16 % (19-48); MONOCYTES % (MANUAL) 13 % (3.4-9.0); NEUTROPHILS % (MANUAL) 56 % (40-74); PLATELET ESTIMATE SLIGHTLY INCREASED; PLATELET MORPHOLOGY COMMENT NORMAL; RBC MORPHOLOGY COMMENT NORMAL
[2017-07-11] MEDS ORDERED: MAGNESIUM SULFATE 2GM/50ML 50 ML IV ONE (12:00)
[2017-07-11] MEDS: CENTRAL TPN FORMULA 1 BAG IV SCH (21:00)
[2017-07-12] VITALS: BP 90/42
[2017-07-12] MEDS: METOCLOPRAMIDE HCL 10 MG/2ML VIAL IV SCH ×2 (00:13→05:55)
[2017-07-12] MEDS: INSULIN REGULAR, HUMAN 100 UNIT/1 ML 3ML VIAL SQ SCH ×4 (00:18→18:34)
--- NOTE | 2017-07-12 03:21 | Progress Note ---
DATE: July 11, 2017 SUBJECTIVE: Ms. Scheafer apparently has done well. She has had some bowel movements. PHYSICAL EXAMINATION: Unremarkable. KUB revealed persistent ileus, though no obvious obstruction. ASSESSMENT: Elderly female with multiple medical problems, currently started on total parenteral nutrition. She has an adynamic ileus with no overt signs of obstruction. PLAN 1. Will remove NG tube. 2. Agree with replacing potassium and magnesium. 3. Will follow. Job#: [id number] CF
[2017-07-12 04:51] VITALS: BP 139/58
[2017-07-12] MEDS: ACETAMINOPHEN 325 MG TAB PO SCH ×3 (05:00→21:19)
[2017-07-12 05:19] VITALS: BP 139/58
[2017-07-12] MEDS: METRONIDAZOLE 500MG/NS 100ML 100 ML IV SCH ×3 (05:55→18:33)
[2017-07-12] MEDS: CEFEPIME HCL 1 GM VIAL IV SCH ×3 (05:55→21:19)
[2017-07-12 06:37] LABS: BASOPHILS # (AUTO) 0.1 (0.0-0.1); BASOPHILS % 0.5 % (0.0-1.0); EOSINOPHILS # (AUTO) 0.1 (0.0-0.4); EOSINOPHILS % 1.1 % (0.0-6.0); HEMOGLOBIN 8.1 g/dL (12.0-16.0); LYMPHOCYTES # (AUTO) 1.7 (1.0-3.2); LYMPHOCYTES % 13.9 % (18.0-39.1); MEAN CORPUSCULAR HEMOGLOBIN 31.6 pg (28-32); MEAN CORPUSCULAR HGB CONC 32.4 g/dL (31-35); MEAN CORPUSCULAR VOLUME 97.7 fL (81-99); MONOCYTES # (AUTO) 1.6 (0.2-0.8); MONOCYTES % 13.6 % (4.4-11.3); NEUTROPHILS # (AUTO) 7.7 (2.1-6.9); NEUTROPHILS % 64.1 % (38.7-80.0); PLATELET COUNT 316 x10e3/uL (140-360); RED BLOOD COUNT 2.56 x10e6/uL (3.6-5.1); RED CELL DISTRIBUTION WIDTH 18.2 % (11.7-14.4)
[2017-07-12 07:14] LABS: ALANINE AMINOTRANSFERASE 14 IU/L (0-55); ALBUMIN 1.8 g/dL (3.5-5.0); ALBUMIN/GLOBULIN RATIO 0.9 (0.8-2.0); ALKALINE PHOSPHATASE 47 IU/L (40-150); BLOOD UREA NITROGEN 26 mg/dL (7-26); BUN/CREATININE RATIO 47 (6-25); CALCIUM 7.5 mg/dL (8.4-10.2); CREATININE, SERUM 0.55 mg/dL (0.57-1.11); EST GLOMERULAR FILTRATION RATE > 60 ML/MIN (60-); GLUCOSE 167 mg/dL (74-118)
--- NOTE | 2017-07-12 07:42 | Progress Note ---
DATE: July 11, 2017 INFECTIOUS DISEASE PROGRESS NOTE This is ID cross-cover for Dr. Burton. The patient is in a bedside chair. She is in no distress. There is family in the room. There are no specific systemic complaints, no adverse medication reaction reported. In the past 24 hours, the maximum temperature was up to 99.6 degrees Fahrenheit. She is stable hemodynamically. There is no gross pallor, no obvious icterus. No oropharyngeal lesions. The neck is supple. The chest is symmetric. The lungs sound clear. Heart sounds are regular. There is no new murmur. The abdomen is full, soft. Bowel sounds are present. No acute erythema of her extremities. Her white count is down to 13.2. Her creatinine is 0.6. There are no new culture reports. IMPRESSION: Leukocytosis is slowly resolving. She has been on treatment for bowel obstruction possibly due to ileus. She is stable from an infectious disease point. I suggest continue current management. Continue to monitor clinical response to treatment. Job#: [id number] ROSHNI
[2017-07-12 07:54] LABS: ANION GAP 7.5 mmol/L (8-16); CARBON DIOXIDE 22 mmol/L (22-29); CHLORIDE 113 mmol/L (98-107); POTASSIUM 3.5 mmol/L (3.5-5.1); SODIUM 139 mmol/L (136-145)
[2017-07-12] MEDS: PANTOPRAZOLE 40 MG 10ML VIAL IV SCH ×2 (10:12→21:19)
[2017-07-12] MEDS: METOPROLOL TARTRATE 50 MG TAB PO SCH ×2 (10:12→21:19)
[2017-07-12] MEDS: FAMOTIDINE 20 MG TAB PO SCH ×2 (10:12→17:09)
[2017-07-12] MEDS: AMIODARONE HCL 200 MG TAB PO SCH ×2 (10:12→21:19)
[2017-07-12 12:00] VITALS: BP 126/57
[2017-07-12] MEDS ORDERED: POTASSIUM CHL 40 MEQ in WATER STERILE 2 80 ML IV ONE (13:45)
--- NOTE | 2017-07-12 14:34 | Progress Note ---
DATE: July 12, 2017 INFECTIOUS DISEASE PROGRESS NOTE This is ID cross-cover for Dr. Burton. The patient is resting in bed. She is in no distress. She is not coughing currently. No dyspnea at rest. No report of vomiting or diarrhea. No overt medication reaction reported. In the past 24 hours, she had temperatures up to 99.4 degrees Fahrenheit. Her temperature currently 98.9. She is stable hemodynamically. There is no gross pallor, no obvious icterus. No oropharyngeal lesions. The neck is supple. The chest is symmetric. Breath sounds are coarse in the lung bates. Heart sounds are regular. There is no new murmur. The abdomen is soft. Bowel sounds are present. There is no acute erythema of the extremities. Her white count is down to 11.9. Her creatinine 0.5. There are no new positive culture reports. IMPRESSION: She has an occasional low-grade temperature. Her white count is trending down. She has ileus. She is stable from an infectious disease point. I suggest continue current management. Continue supportive care. Job#: [id number] ROSHNI
[2017-07-12 16:32] VITALS: BP 161/65
[2017-07-12] MEDS ORDERED: ENOXAPARIN SOD INJ 40 MG/0.4 ML SYR SC SCH (17:00)
[2017-07-12 20:00] VITALS: BP 147/61
[2017-07-12] MEDS ORDERED: CENTRAL TPN FORMULA 1 BAG IV SCH (20:00)
[2017-07-13] VITALS (9 sets, daily range): BP systolic 112–173; BP diastolic 55–80
[2017-07-13] MEDS: INSULIN REGULAR, HUMAN 100 UNIT/1 ML 3ML VIAL SQ SCH ×4 (00:53→18:29)
[2017-07-13] MEDS: METRONIDAZOLE 500MG/NS 100ML 100 ML IV SCH ×2 (00:54→06:41)
[2017-07-13] MEDS: CEFEPIME HCL 1 GM VIAL IV SCH (06:41)
[2017-07-13] MEDS: ACETAMINOPHEN 325 MG TAB PO SCH ×3 (06:41→20:33)
[2017-07-13 07:22] LABS: BASOPHILS # (AUTO) 0.1 (0.0-0.1); BASOPHILS % 0.4 % (0.0-1.0); EOSINOPHILS # (AUTO) 0.3 (0.0-0.4); EOSINOPHILS % 2.6 % (0.0-6.0); HEMATOCRIT 26.5 % (34.2-44.1); HEMOGLOBIN 8.2 g/dL (12.0-16.0); LYMPHOCYTES # (AUTO) 1.7 (1.0-3.2); LYMPHOCYTES % 15.6 % (18.0-39.1); MEAN CORPUSCULAR HEMOGLOBIN 32.7 pg (28-32); MEAN CORPUSCULAR HGB CONC 30.9 g/dL (31-35); MEAN CORPUSCULAR VOLUME 105.6 fL (81-99); MONOCYTES # (AUTO) 1.4 (0.2-0.8); MONOCYTES % 12.1 % (4.4-11.3); NEUTROPHILS # (AUTO) 6.8 (2.1-6.9); NEUTROPHILS % 60.8 % (38.7-80.0); PLATELET COUNT 368 x10e3/uL (140-360); RED BLOOD COUNT 2.51 x10e6/uL (3.6-5.1); RED CELL DISTRIBUTION WIDTH 19.4 % (11.7-14.4)
--- NOTE | 2017-07-13 08:27 | Progress Note ---
DATE: July 13, 2017 TIME: 7:00 a.m. OVERNIGHT: Remains on TPN. Has had bowel movements regularly. REVIEW OF SYSTEMS: Unreliable. PHYSICAL EXAMINATION: VITAL SIGNS: Reviewed. GENERAL APPEARANCE: Tired-appearing woman resting in bed. HEENT: Anicteric. CARDIOVASCULAR: Normal S1 and S2. LUNGS: Bilateral breath sounds. ABDOMEN: Soft, nondistended. Minimally tender. EXTREMITIES: No edema. She has right hip surgical site clean and dry. SKIN: Dry. PSYCHIATRIC: Flat affect. NEUROLOGICAL: Awake. Moves all extremities. LABS: Reviewed. MEDICATIONS: Reviewed. ASSESSMENT: An 86-year-old woman: 1. New-onset atrial fibrillation with rapid ventricular response. 2. Fall/right hip fracture, status post repair. 3. Ileus. 4. Severe hypokalemia. 5. Normocytic anemia. 6. Acute psychosis/acute delirium. 7. Moderate hyperbilirubinemia. 8. Physical deconditioning. 9. Gastrointestinal bleed. PLAN: 1. Physical therapy. As above, the patient is nonweightbearing to the right leg. 2. Continue TPN. The patient continues to have ileus but she has some bowel movements. 3. Continue treatment for sepsis. She has had aspiration pneumonia, leukocytosis, tachycardia. Infectious disease assisting in management. 4. 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 5. Patient is n.p.o. status. 6. Family at bedside assisting in the orientation. 7. Follow up potassium and electrolyte levels. 8. Continue pantoprazole 40 IV q.12. for GI bleed. Job#: [id number]
[2017-07-13 08:34] LABS: EOSINOPHILS % (MANUAL) 3 % (0-7); LYMPHOCYTES % (MANUAL) 14 % (19-48); METAMYELOCYTES % (MANUAL) 1 % (0-0); MONOCYTES % (MANUAL) 9 % (3.4-9.0); MYELOCYTES % (MANUAL) 3 % (0-0); NEUTROPHILS % (MANUAL) 68 % (40-74)
[2017-07-13 08:35] LABS: PLATELET ESTIMATE ADEQUATE
[2017-07-13 08:36] LABS: ANISOCYTOSIS SLIGHT; HYPOCHROMASIA SLIGHT; PLATELET MORPHOLOGY COMMENT NORMAL; RBC MORPHOLOGY COMMENT NORMAL
[2017-07-13 08:56] LABS: ALANINE AMINOTRANSFERASE 12 IU/L (0-55); ALBUMIN 1.9 g/dL (3.5-5.0); ALBUMIN/GLOBULIN RATIO 0.8 (0.8-2.0); ALKALINE PHOSPHATASE 49 IU/L (40-150); ANION GAP 7.1 mmol/L (8-16); BLOOD UREA NITROGEN 28 mg/dL (7-26); BUN/CREATININE RATIO 47 (6-25); CALCIUM 7.6 mg/dL (8.4-10.2); CARBON DIOXIDE 21 mmol/L (22-29); CHLORIDE 119 mmol/L (98-107); EST GLOMERULAR FILTRATION RATE > 60 ML/MIN (60-); GLUCOSE 154 mg/dL (74-118); POTASSIUM 4.1 mmol/L (3.5-5.1); SODIUM 143 mmol/L (136-145)
[2017-07-13] MEDS: AMIODARONE HCL 200 MG TAB PO SCH (10:00)
[2017-07-13] MEDS: PANTOPRAZOLE 40 MG 10ML VIAL IV SCH ×2 (10:44→20:33)
[2017-07-13] MEDS: FAMOTIDINE 20 MG TAB PO SCH ×2 (10:44→18:28)
[2017-07-13] MEDS: METOPROLOL TARTRATE 50 MG TAB PO SCH ×2 (10:45→20:33)
--- NOTE | 2017-07-13 12:21 | Progress Note ---
DATE: July 13, 2017 INFECTIOUS DISEASE PROGRESS NOTE This is ID cross-cover for Dr. Burton. The patient is fairly stable. She is in no distress. I met her in the bedside chair. She is not coughing. No dyspnea, no report of vomiting, no report of diarrhea. No overt medication reaction reported. In the past 24 hours, her maximum temperature was up to 98.9 degrees Fahrenheit. She is hemodynamically stable. She has no pallor, no icterus, no oropharyngeal lesions. The neck is supple. The chest is symmetric. The lungs sound clear. Heart sounds are regular without a new murmur. The abdomen is soft, nontender. Bowel sounds are present. No acute erythema of her extremities. Her white count is down to 11.1. Her creatinine 0.6. There are no new culture reports. IMPRESSION: She had ileus with leukocytosis. Her white count is trending down. She is afebrile. Blood and urine cultures were negative. I suggest continue current management. Continue supportive care. Job#: [id number] ROSHNI
[2017-07-13] MEDS ORDERED: CENTRAL TPN FORMULA 1 BAG IV SCH (12:55)
[2017-07-14] VITALS (7 sets, daily range): BP systolic 145–186; BP diastolic 66–78
[2017-07-14] MEDS: INSULIN REGULAR, HUMAN 100 UNIT/1 ML 3ML VIAL SQ SCH ×4 (00:42→18:07)
[2017-07-14] MEDS: ACETAMINOPHEN 325 MG TAB PO SCH ×3 (05:33→21:47)
[2017-07-14] MEDS ORDERED: CLONIDINE HCL 0.2 MG/24 HR 1 EA PATCH TOP SCH (08:30)
[2017-07-14] MEDS: PANTOPRAZOLE 40 MG 10ML VIAL IV SCH ×2 (09:00→21:47)
[2017-07-14] MEDS: AMIODARONE HCL 200 MG TAB PO SCH (09:00)
[2017-07-14] MEDS: METOPROLOL TARTRATE 50 MG TAB PO SCH ×3 (09:00→21:48)
[2017-07-14] MEDS: FAMOTIDINE 20 MG TAB PO SCH ×2 (09:00→17:55)
--- NOTE | 2017-07-14 13:05 | Progress Note ---
DATE: July 14, 2017 TIME: 8:20 a.m. OVERNIGHT: Patient is confused. REVIEW OF SYSTEMS: Unobtainable. PHYSICAL EXAMINATION VITAL SIGNS: Have been reviewed. Temperature 97, pulse 90, blood pressure 158/74. GENERAL: A tired-appearing woman resting in bed. HEENT: Anicteric. CARDIOVASCULAR: Normal S1 and S2. LUNGS: Moderate breath sounds. ABDOMEN: Slightly firm. Nontender and nondistended. EXTREMITIES: No edema. She has the right hip with surgical site clean and dry. SKIN: Dry. PSYCHIATRIC: Flat affect. NEUROLOGICAL: Awake but confused. LABS: Reviewed. MEDICATIONS: Reviewed. ASSESSMENT: An 86-year-old woman with: 1. New-onset atrial fibrillation with rapid ventricular response. 2. Fall/right hip fracture: Status post repair. 3. Ileus. 4. Severe hypokalemia. 5. Acute psychosis/acute delirium. 6. Normocytic anemia/moderate hyperbilirubinemia. 7. Physical deconditioning. 8. Gastrointestinal bleed. PLAN 1. Physical therapy. She was in a wheelchair yesterday. 2. Continue TPN. 3. Continue treatment for sepsis and aspiration pneumonia. 4. Continue amiodarone and beta sheyla. 5. Patient continues to have some bowel movements. 6. Mild leukocytosis yesterday. Will follow labs tomorrow. 7. LTAC evaluation may be more appropriate. Patient is on TPN. Job#: [id number] ADAM
--- NOTE | 2017-07-14 15:02 | Progress Note ---
DATE: July 14, 2017 INFECTIOUS DISEASE PROGRESS NOTE The patient is fairly stable. She is in no acute distress. She is not coughing. No dyspnea at rest. No vomiting. No diarrhea. No adverse medication reaction reported. PHYSICAL EXAMINATION VITALS: In the past 24 hours, maximum temperature was up to 98.5 degrees Fahrenheit. She is stable hemodynamically. HEENT: She has no pallor. No icterus. No oropharyngeal lesions. NECK: Supple. CHEST: Symmetric. The lungs are clear. HEART: Sounds are regular without a new murmur. ABDOMEN: Soft. Bowel sounds are present. EXTREMITIES: No acute erythema of her extremities. Her white count on July 13, 2017 was down to 11.1. Her creatinine 0.6. There are no new positive culture reports. IMPRESSION: She had ileus with bowel obstruction. She had leukocytosis. Her white count has been trending down. She is afebrile and stable. I suggest continue current management, continue to monitor clinical response to treatment. This is ID cross-cover for Dr. Burton. Job#: [id number] SAK
[2017-07-14] MEDS: ENOXAPARIN 30 MG/0.3 ML SYR SC SCH (17:55)
[2017-07-14] MEDS ORDERED: CENTRAL TPN FORMULA 1 BAG IV SCH (20:00)
[2017-07-14] MEDS ORDERED: FUROSEMIDE INJ 10 MG/ML 2 ML VIAL IV ONE (20:15)
[2017-07-14] MEDS ORDERED: ALBUTEROL/IPRATROPIUM 3 ML NEB NEB PRN (20:15)
[2017-07-14] MEDS ORDERED: LORAZEPAM INJ 2 MG/ML VIAL IV SCH (21:00)
--- NOTE | 2017-07-14 22:27 | Diagnostic Imaging Report ---
EXAMINATION: CHEST SINGLE (PORTABLE) INDICATION: Wheezing COMPARISON: 07/05/2017 FINDINGS: TUBES and LINES: Right upper extremity PICC line with distal tip at the atriocaval junction. LUNGS: Lungs are not well inflated. There are bibasilar atelectasis. There is perihilar interstitial opacities, consistent with interstitial edema. PLEURA: Small left pleural effusion. HEART AND MEDIASTINUM: Cardiac size is moderately enlarged. There are atherosclerotic calcifications within the aorta. BONES AND SOFT TISSUES: No acute osseous lesion. Soft tissues are unremarkable. UPPER ABDOMEN: No free air under the diaphragm. IMPRESSION: Findings are compatible with recurrent mild to moderate cardiogenic pulmonary edema and small left pleural effusion Signed by: Dr. Abrahan Hargrove M.D. on 07/14/2017 10:24 PM
[2017-07-15] VITALS: BP 121/56
[2017-07-15] MEDS: INSULIN REGULAR, HUMAN 100 UNIT/1 ML 3ML VIAL SQ SCH ×4 (00:51→18:00)
[2017-07-15 03:29] VITALS: BP 153/75
[2017-07-15 04:00] VITALS: BP 140/68
[2017-07-15 05:44] LABS: BASOPHILS # (AUTO) 0.1 (0.0-0.1); BASOPHILS % 0.5 % (0.0-1.0); EOSINOPHILS # (AUTO) 0.1 (0.0-0.4); EOSINOPHILS % 0.6 % (0.0-6.0); HEMATOCRIT 27.5 % (34.2-44.1); HEMOGLOBIN 8.8 g/dL (12.0-16.0); LYMPHOCYTES # (AUTO) 1.8 (1.0-3.2); LYMPHOCYTES % 14.2 % (18.0-39.1); MEAN CORPUSCULAR HEMOGLOBIN 31.5 pg (28-32); MEAN CORPUSCULAR VOLUME 98.6 fL (81-99); MONOCYTES % 15.3 % (4.4-11.3); NEUTROPHILS # (AUTO) 7.5 (2.1-6.9); NEUTROPHILS % 57.8 % (38.7-80.0); PLATELET COUNT 381 x10e3/uL (140-360); RED BLOOD COUNT 2.79 x10e6/uL (3.6-5.1); RED CELL DISTRIBUTION WIDTH 19.2 % (11.7-14.4)
[2017-07-15] MEDS: ACETAMINOPHEN 325 MG TAB PO SCH ×2 (05:51→14:00)
[2017-07-15] MEDS ORDERED: LEVOTHYROXINE SODIUM 25 MCG TABLET PO SCH (06:00)
--- NOTE | 2017-07-15 07:08 | Progress Note ---
DATE: July 15, 2017 TIME: 6:46 a.m. OVERNIGHT: Patient had some wheezing overnight and increased pulmonary congestion. Received Lasix with improvement in diuresis. Chest x-ray was ordered. REVIEW OF SYSTEMS: Unobtainable. PHYSICAL EXAMINATION VITAL SIGNS: Reviewed. GENERAL: A tired-appearing woman resting in bed. HEENT: Anicteric. CARDIOVASCULAR: Normal S1 and S2. LUNGS: Good air movement. Mildly coarse. ABDOMEN: Soft, nontender and nondistended. EXTREMITIES: No edema. She has the right hip with surgical site clean and dry. SKIN: Dry. PSYCHIATRIC: Flat affect. NEUROLOGICAL: Moves all extremities. LABS: Reviewed. MEDICATIONS: Reviewed. ASSESSMENT: An 86-year-old woman with: 1. New-onset atrial fibrillation with rapid ventricular response. 2. Fall/right hip fracture: Status post repair. 3. Ileus. 4. Aspiration pneumonia. 5. Severe hypokalemia. 6. Acute psychosis/acute delirium. 7. Normocytic anemia/moderate hyperbilirubinemia. 8. Physical deconditioning. 9. Gastrointestinal bleed. PLAN 1. Received Lasix last night. Will receive Lasix today. Improvement in pulmonary congestion and wheezing. Follow up chest x-ray. 2. Continue TPN. 3. Continue treatment for sepsis and aspiration pneumonia. 4. Continue Lasix diuretics. 5. Continue amiodarone and beta sheyla. 6. Chest x-ray overnight showed mild to moderate cardiogenic pulmonary edema and small left pleural effusion. Will continue diuretics this morning in the form of Lasix 20 mg IV q.24 h. Will monitor the I's and O's. Attempt to keep the patient at negative. Renal function is normal. 7. LTAC evaluation ongoing. Continue physical therapy. The patient has had multiple bowel movements. Job#: [id number] RI
[2017-07-15 07:39] VITALS: BP 143/69
[2017-07-15 08:43] LABS: BAND NEUTROPHILS % (MANUAL) 3 %; EOSINOPHILS % (MANUAL) 2 % (0-7); LYMPHOCYTES % (MANUAL) 21 % (19-48); METAMYELOCYTES % (MANUAL) 5 % (0-0); MONOCYTES % (MANUAL) 11 % (3.4-9.0); MYELOCYTES % (MANUAL) 2 % (0-0); NEUTROPHILS % (MANUAL) 53 % (40-74); NUCLEATED RED BLOOD CELLS 2; POLYCHROMASIA FEW
[2017-07-15 08:44] LABS: PLATELET ESTIMATE ADEQUATE; PLATELET MORPHOLOGY COMMENT NORMAL
[2017-07-15 08:52] LABS: HYPOCHROMASIA SLIG; RBC MORPHOLOGY COMMENT ABNORMAL
[2017-07-15] MEDS ORDERED: FUROSEMIDE INJ 10 MG/ML 2 ML VIAL IV SCH (09:00)
[2017-07-15] MEDS: METOPROLOL TARTRATE 50 MG TAB PO SCH (09:30)
[2017-07-15] MEDS: PANTOPRAZOLE 40 MG 10ML VIAL IV SCH (09:30)
[2017-07-15] MEDS: FAMOTIDINE 20 MG TAB PO SCH ×2 (09:30→16:30)
[2017-07-15] MEDS: AMIODARONE HCL 200 MG TAB PO SCH (09:30)
[2017-07-15 11:51] VITALS: BP 127/60
[2017-07-15 16:17] VITALS: BP 151/67
[2017-07-15] MEDS: ENOXAPARIN 30 MG/0.3 ML SYR SC SCH (17:00)
--- NOTE | 2017-07-16 08:13 | Discharge Summary ---
PRINCIPAL DIAGNOSES 1. New-onset atrial fibrillation. 2. Fall with right hip fracture, status post repair. 3. Postoperative ileus. 4. Aspiration pneumonia. 5. Severe hypokalemia. 6. Acute psychosis/acute delirium. 7. Normocytic anemia/moderate hyperbilirubinemia. 8. Physical deconditioning. 9. Gastrointestinal bleed. SECONDARY DIAGNOSIS: Dementia. CHIEF COMPLAINT: Fall. HISTORY OF PRESENT ILLNESS: An 86-year-old woman with a fall and hip fracture. Please refer to the H and P for further details. HOSPITAL COURSE: Patient had a fall with right hip fracture. Underwent surgical management. Subsequently, developed new-onset atrial fibrillation and rapid ventricular response, and also postoperative ileus which was treated. During hospitalization, had aspiration pneumonia and treated for severe hypokalemia as well. Acute psychosis and acute delirium managed. The patient is improving, but slowly. Transitioned to LTAC facility for further care. DISCHARGE MEDICATIONS: Per electronic medical record. FOLLOWUP: Medical team at LTAC facility and then primary care once discharged. JORDAN VICTOR MD Job#: [id number] ADAM
== END 2017-07-15 19:04 | DRG 480 ==
LOC: ER 23:42 → MED/SURG 06-28 02:18
PROVIDERS: ADMIT Internal Medicine; ATTEND Internal Medicine
PROC: 0QSB34Z Reposition Right Lower Femur with Internal Fixation Device, Percutaneous Approach (ICD-10-PCS; principal; 2017-06-28 12:00)
PROC: 02HV33Z Insertion of Infusion Device into Superior Vena Cava, Percutaneous Approach (ICD-10-PCS; 2017-07-05)
DX: M48.50XA Collapsed vertebra, not elsewhere classified, site unspecified, initial encounter for fracture (principal); A41.9 Sepsis, unspecified organism; J69.0 Pneumonitis due to inhalation of food and vomit; K92.2 Gastrointestinal hemorrhage, unspecified; F03.91 Unspecified dementia, unspecified severity, with behavioral disturbance; K91.89 Other postprocedural complications and disorders of digestive system; K56.7 Ileus, unspecified; I10 Essential (primary) hypertension; E03.9 Hypothyroidism, unspecified; I48.91 Unspecified atrial fibrillation; E87.6 Hypokalemia; F32.9 Major depressive disorder, single episode, unspecified; E80.4 Gilbert syndrome; R73.9 Hyperglycemia, unspecified
CPT/HCPCS: 36415; 36569; 71010; 74000; 74177; 76000; 80048; 80053; 80076; 81001; 82270; 82330; 82948; 83605; 83735; 84100; 84134; 84478; 85007; 85025; 85027; 85610; 85730; 86850; 86900; 86920; 87040; 87086; 87493; 93005; 93306; 96360; 96361; 96365; 96366; 96367; 96372; 97139; 99284; C1713; J0690; J0692; J1100; J1160; J1170; J1200; J1650; J1885; J1940; J1956; J2001; J2060; J2270; J2405; J2550; J2765; J3475; J3480; J7030; J7042; J7050; Q9967